=== PATIENT | female | born 1955 | race Caucasian/White ===

== ENCOUNTER 2021-11-29 09:39 | Outpatient (REF) | payer OTHER, MEDICARE, SELFPAY ==
[2021-11-29 11:37] LABS: Hematocrit 38.1 % (37.0-47.0); Hemoglobin 11.8 g/dl (12.0-16.0); Mean Corpuscular Hemoglobin 26.9 pg (27.0-33.0); Mean Corpuscular Volume 86.8 fL (80.0-98.0); Mean Platelet Volume 11.4 fL (9.4-12.3); Platelet Count 158 X10*3/uL (160-400); Red Blood Count 4.39 X10*6/uL (4.20-5.50); White Blood Count 4.7 X10*3/uL (4.8-10.8)
[2021-11-29 11:51] LABS: Estimated Average Glucose 169 mg/dL; Hemoglobin A1c % 7.5 %
[2021-11-29 12:07] LABS: Alanine Aminotransferase 17 U/L (0-31); Albumin Level 4.3 g/dL (3.5-5.0); Alkaline Phosphatase 74 U/L (39-117); Anion Gap 11 (12-20); Aspartate Amino Transferase 17 U/L (5-31); Bilirubin Total 0.2 mg/dL (0.0-1.0); Blood Urea Nitrogen 19 mg/dL (9-16); Calcium 9.3 mg/dL (8.4-10.2); Carbon Dioxide 28 mmol/L (22-29); Chloride 108 mmol/L (96-108); Cholesterol 276 mg/dL; Estimated Glomerular Filt Rate > 60; Glucose Fasting 138 mg/dL (60-99); HDL Cholesterol 37 mg/dL; LDL Cholesterol Calculated 173 mg/dl; Potassium 4.3 mmol/L (3.3-5.1); Sodium 143 mmol/L (135-145); Triglycerides 334 mg/dL
[2021-11-29 12:12] LABS: TSH reflex Free T4 1.32 uIU/mL (0.32-4.0); Vitamin D 25-OH Total 15.2 ng/mL (>30)
== END 2021-11-29 09:40 | disposition home or self-care (01) ==
LOC: HO.HMGCLDS 09:39
PROVIDERS: PCP Internal Medicine; Visit Provider Internal Medicine
DX: E11.9 Type 2 diabetes mellitus without complications (principal); E78.5 Hyperlipidemia, unspecified; E55.9 Vitamin D deficiency, unspecified; I10 Essential (primary) hypertension
CPT/HCPCS: 36415; 80053; 80061; 82306; 83036; 84443; 85027

== ENCOUNTER 2021-12-01 09:59 | Outpatient (REF) | payer OTHER, MEDICARE, SELFPAY ==
[2021-12-01 11:54] LABS: Creatinine Urine 93.19 mg/dL
== END 2021-12-01 10:00 | disposition home or self-care (01) ==
LOC: HO.HMGCLNP 09:59
PROVIDERS: PCP Internal Medicine; Visit Provider Internal Medicine
DX: E11.9 Type 2 diabetes mellitus without complications (principal); E78.5 Hyperlipidemia, unspecified; I10 Essential (primary) hypertension
CPT/HCPCS: 82043

== ENCOUNTER 2022-02-14 10:14 | Outpatient (REF) | payer OTHER, MEDICARE, SELFPAY ==
[2022-02-14 11:32] LABS: Hematocrit 35.1 % (37.0-47.0); Mean Corpuscular HGB Conc 31.3 g/dl (31.0-35.0); Mean Corpuscular Hemoglobin 26.8 pg (27.0-33.0); Mean Corpuscular Volume 85.6 fL (80.0-98.0); Platelet Count 179 X10*3/uL (160-400); Red Cell Distribution Width 14.2 % (11.0-16.0); White Blood Count 4.8 X10*3/uL (4.8-10.8)
[2022-02-14 12:10] LABS: Estimated Average Glucose 171 mg/dL; Hemoglobin A1c % 7.6 %
[2022-02-14 12:15] LABS: Creatinine Urine 65.58 mg/dL; Microalbum/Creatinine Ratio Ur 134.1 ug/mg cr
[2022-02-14 12:21] LABS: Alanine Aminotransferase 17 U/L (0-31); Albumin Level 4.4 g/dL (3.5-5.0); Alkaline Phosphatase 68 U/L (39-117); Anion Gap 15 (12-20); Aspartate Amino Transferase 22 U/L (5-31); Bilirubin Total 0.6 mg/dL (0.0-1.0); Blood Urea Nitrogen 18 mg/dL (9-16); Calcium 9.1 mg/dL (8.4-10.2); Carbon Dioxide 25 mmol/L (22-29); Chloride 105 mmol/L (96-108); Cholesterol 223 mg/dL; Estimated Glomerular Filt Rate > 60; Glucose Fasting 114 mg/dL (60-99); HDL Cholesterol 38 mg/dL; LDL Cholesterol Calculated 132 mg/dl; Potassium 4.5 mmol/L (3.3-5.1); Sodium 140 mmol/L (135-145); Total Protein 7.1 g/dL (6.5-8.0); Triglycerides 268 mg/dL
== END 2022-02-14 10:15 | disposition home or self-care (01) ==
LOC: HO.HMGCLDS 10:14
PROVIDERS: Visit Provider Internal Medicine
DX: E78.5 Hyperlipidemia, unspecified (principal); I10 Essential (primary) hypertension; E11.9 Type 2 diabetes mellitus without complications
CPT/HCPCS: 36415; 80053; 80061; 82043; 83036; 85027

== ENCOUNTER 2022-05-15 09:42 | Outpatient (REF) | payer OTHER, MEDICARE, SELFPAY ==
[2022-05-15 11:42] LABS: Estimated Average Glucose 177 mg/dL; Hemoglobin A1c % 7.8 %
[2022-05-15 11:50] LABS: Alanine Aminotransferase 19 U/L (0-31); Albumin Level 4.5 g/dL (3.5-5.0); Alkaline Phosphatase 74 U/L (39-117); Anion Gap 12 (12-20); Aspartate Amino Transferase 19 U/L (5-31); Bilirubin Total 0.3 mg/dL (0.0-1.0); Blood Urea Nitrogen 19 mg/dL (9-16); Calcium 8.8 mg/dL (8.4-10.2); Carbon Dioxide 28 mmol/L (22-29); Chloride 104 mmol/L (96-108); Cholesterol 251 mg/dL; Estimated Glomerular Filt Rate > 60; Glucose Fasting 132 mg/dL (60-99); HDL Cholesterol 38 mg/dL; Potassium 4.6 mmol/L (3.3-5.1); Sodium 139 mmol/L (135-145); Total Protein 7.1 g/dL (6.5-8.0); Triglycerides 421 mg/dL
== END 2022-05-15 09:43 | disposition home or self-care (01) ==
LOC: HO.HMGCLDS 09:42
PROVIDERS: Visit Provider Internal Medicine
DX: E11.9 Type 2 diabetes mellitus without complications (principal); E78.5 Hyperlipidemia, unspecified; I10 Essential (primary) hypertension
CPT/HCPCS: 36415; 80053; 80061; 83036

== ENCOUNTER 2022-08-31 09:05 | Outpatient (REF) | payer OTHER, MEDICARE, SELFPAY ==
[2022-08-31 11:25] LABS: MANUAL DIFF FLAG NO
[2022-08-31 11:31] LABS: Basophils Percent Auto 0.5 % (0-2); Eosinophils Absolute Auto 0.3 X10*3/uL (0.0-0.4); Eosinophils Percent Auto 4.2 % (0-4); Hematocrit 37.1 % (37.0-47.0); Hemoglobin 11.7 g/dl (12.0-16.0); Imm Gran Abs Auto 0.03 X10*3/uL (0.00-0.03); Imm Gran Pct Auto 0.5 % (0.0-0.4); Lymphocytes Absolute Auto 1.7 X10*3/uL (1.2-4.9); Lymphocytes Percent Auto 29.3 % (20-40); Mean Corpuscular HGB Conc 31.5 g/dl (31.0-35.0); Mean Corpuscular Hemoglobin 26.9 pg (27.0-33.0); Mean Corpuscular Volume 85.3 fL (80.0-98.0); Mean Platelet Volume 10.9 fL (9.4-12.3); Monocytes Absolute Auto 0.3 X10*3/uL (0.1-1.2); Monocytes Percent Auto 5.4 % (2-11); Neutrophils Absolute Auto 3.6 x10*3/uL (2.0-8.3); Neutrophils Percent Auto 60.1 % (45-73); Platelet Count 178 X10*3/uL (160-400); Red Blood Count 4.35 X10*6/uL (4.20-5.50); Red Cell Distribution Width 13.3 % (11.0-16.0); White Blood Count 5.9 X10*3/uL (4.8-10.8)
[2022-08-31 11:47] LABS: Estimated Average Glucose 128 mg/dL; Hemoglobin A1c % 6.1 %
[2022-08-31 11:55] LABS: Alanine Aminotransferase 14 U/L (0-31); Albumin Level 4.5 g/dL (3.5-5.0); Alkaline Phosphatase 64 U/L (39-117); Anion Gap 15 (12-20); Aspartate Amino Transferase 22 U/L (5-31); Bilirubin Total 0.3 mg/dL (0.0-1.0); Blood Urea Nitrogen 15 mg/dL (9-16); Calcium 9.3 mg/dL (8.4-10.2); Carbon Dioxide 28 mmol/L (22-29); Chloride 103 mmol/L (96-108); Cholesterol 161 mg/dL; Estimated Glomerular Filt Rate > 60; Glucose Fasting 94 mg/dL (60-99); HDL Cholesterol 38 mg/dL; LDL Cholesterol Calculated 84 mg/dl; Sodium 142 mmol/L (135-145); Total Protein 6.9 g/dL (6.5-8.0); Triglycerides 198 mg/dL
[2022-08-31 12:40] LABS: Microalbum/Creatinine Ratio Ur 27.3 ug/mg cr
== END 2022-08-31 09:06 | disposition home or self-care (01) ==
LOC: HO.HMGCLDS 09:05
PROVIDERS: PCP Internal Medicine; Visit Provider Internal Medicine
DX: E78.5 Hyperlipidemia, unspecified (principal); I10 Essential (primary) hypertension; E11.9 Type 2 diabetes mellitus without complications
CPT/HCPCS: 36415; 80053; 80061; 82043; 83036; 85025

== ENCOUNTER 2023-01-21 08:29 | Outpatient (REF) | payer OTHER, MEDICARE, SELFPAY ==
[2023-01-21 11:36] LABS: MANUAL DIFF FLAG NO
[2023-01-21 11:42] LABS: Basophils Percent Auto 0.5 % (0-2); Eosinophils Absolute Auto 0.3 X10*3/uL (0.0-0.4); Eosinophils Percent Auto 5.6 % (0-4); Hematocrit 38.7 % (37.0-47.0); Hemoglobin 12.1 g/dl (12.0-16.0); Imm Gran Abs Auto 0.03 X10*3/uL (0.00-0.03); Imm Gran Pct Auto 0.5 % (0.0-0.4); Lymphocytes Absolute Auto 2.2 X10*3/uL (1.2-4.9); Lymphocytes Percent Auto 39.2 % (20-40); Mean Corpuscular HGB Conc 31.3 g/dl (31.0-35.0); Mean Corpuscular Hemoglobin 26.8 pg (27.0-33.0); Mean Corpuscular Volume 85.8 fL (80.0-98.0); Mean Platelet Volume 11.3 fL (9.4-12.3); Monocytes Absolute Auto 0.3 X10*3/uL (0.1-1.2); Monocytes Percent Auto 5.9 % (2-11); Neutrophils Absolute Auto 2.7 x10*3/uL (2.0-8.3); Neutrophils Percent Auto 48.3 % (45-73); Platelet Count 174 X10*3/uL (160-400); Red Blood Count 4.51 X10*6/uL (4.20-5.50); Red Cell Distribution Width 13.7 % (11.0-16.0); White Blood Count 5.6 X10*3/uL (4.8-10.8)
[2023-01-21 12:20] LABS: Estimated Average Glucose 137 mg/dL; Hemoglobin A1C 152.2592 umol/L; Hemoglobin A1c % 6.4 %
[2023-01-21 12:39] LABS: Alanine Aminotransferase 17 U/L (0-31); Albumin Level 4.2 g/dL (3.5-5.0); Alkaline Phosphatase 62 U/L (39-117); Anion Gap 16 (12-20); Aspartate Amino Transferase 23 U/L (5-31); Bilirubin Total 0.3 mg/dL (0.0-1.0); Blood Urea Nitrogen 19 mg/dL (9-16); Calcium 8.8 mg/dL (8.4-10.2); Carbon Dioxide 26 mmol/L (22-29); Chloride 104 mmol/L (96-108); Cholesterol 152 mg/dL; Creatinine Urine 114.11 mg/dL; Estimated Glomerular Filt Rate > 60; Glucose Fasting 106 mg/dL (60-99); HDL Cholesterol 39 mg/dL; LDL Cholesterol Calculated 77 mg/dl; Microalbum/Creatinine Ratio Ur 28.9 ug/mg cr; Potassium 4.1 mmol/L (3.3-5.1); Sodium 142 mmol/L (135-145); Total Protein 6.5 g/dL (6.5-8.0); Triglycerides 181 mg/dL
== END 2023-01-21 08:30 | disposition home or self-care (01) ==
LOC: HO.HMGCLDS 08:29
PROVIDERS: PCP Internal Medicine; Visit Provider Internal Medicine
DX: E11.9 Type 2 diabetes mellitus without complications (principal); E78.5 Hyperlipidemia, unspecified; I10 Essential (primary) hypertension
CPT/HCPCS: 36415; 80053; 80061; 82043; 83036; 85025

== ENCOUNTER 2023-05-31 08:33 | Outpatient (REF) | payer OTHER, MEDICARE, SELFPAY ==
[2023-05-31 11:38] LABS: Estimated Average Glucose 128 mg/dL; Hemoglobin A1c % 6.1 %
[2023-05-31 12:05] LABS: Alanine Aminotransferase 19 U/L (0-31); Albumin Level 4.5 g/dL (3.5-5.0); Alkaline Phosphatase 63 U/L (39-117); Anion Gap 21 (12-20); Aspartate Amino Transferase 19 U/L (5-31); Bilirubin Total 0.3 mg/dL (0.0-1.0); Blood Urea Nitrogen 21 mg/dL (9-16); Calcium 9.5 mg/dL (8.4-10.2); Carbon Dioxide 19 mmol/L (22-29); Chloride 104 mmol/L (96-108); Cholesterol 155 mg/dL; Estimated Glomerular Filt Rate > 60; Glucose Fasting 158 mg/dL (60-99); HDL Cholesterol 36 mg/dL; LDL Cholesterol Calculated 71 mg/dl; Potassium 4.6 mmol/L (3.3-5.1); Sodium 139 mmol/L (135-145); Total Protein 7.2 g/dL (6.5-8.0); Triglycerides 241 mg/dL
[2023-05-31 12:28] LABS: Creatinine Urine 103.05 mg/dL; Microalbum/Creatinine Ratio Ur 18.4 ug/mg cr
== END 2023-05-31 08:34 | disposition home or self-care (01) ==
LOC: HO.HMGCLDS 08:33
PROVIDERS: PCP Internal Medicine; Visit Provider Internal Medicine
DX: E11.9 Type 2 diabetes mellitus without complications (principal); I10 Essential (primary) hypertension; E78.5 Hyperlipidemia, unspecified
CPT/HCPCS: 36415; 80053; 80061; 82043; 83036

== ENCOUNTER 2023-06-03 13:54 | Outpatient (AMB) | payer OTHER, MEDICARE, SELFPAY ==
--- NOTE | 2023-06-03 14:25 | MHC.PC.OV ---
Vital Signs 06/03/23 14:26 Height 5 ft Weight 138 lb BMI 26.9 BP 128/50 L Blood Pressure Location Lt brachial Position Sitting Pulse 89 Pulse Source Pulse Oximeter Pulse Oximetry (%) 96 Oxygen Delivery Method Room Air Intake Visit Reasons: Followup Allergies Sulfa (Sulfonamide Antibiotics) [SULFA (SULFONAMIDE ANTIBIOTICS)] Allergy (Unknown, Verified 06/03/23 14:25) HIVES pravastatin Adverse Reaction (Intermediate, Verified 06/03/23 14:25) Diarrhea Medication List - Last Reconciled 06/03/23 by Radha Nair MD amlodipine 5 mg PO DAILY BD Ultra-Fine Natalie Pen Needle (pen needle, diabetic) 1 ea miscellaneous DAILY NS blood sugar diagnostic ([employer] Ultra Test strips) 1 QD cetirizine (Zyrtec) 10 mg PO DAILY PRN dapagliflozin propanediol (Farxiga) 5 mg PO DAILY dapagliflozin propanediol (Farxiga) 10 mg PO DAILY dulaglutide (Trulicity) 1.5 mg (0.5 mL) subcut QWEEK insulin glargine (Lantus Solostar U-100 Insulin) 32 units (0.32 mL) subcut DAILY losartan 100 mg PO DAILY metformin ER 1,000 mg (2 x 500 mg) PO BID omeprazole 20 mg PO DAILY rosuvastatin (Crestor) 10 mg PO DAILY sertraline 150 mg (1.5 x 100 mg) PO DAILY Tobacco use date assessed: 06/03/23 Fall risk assessment: No Falls in past year Last assessed Fall Risk: 06/03/23 Dental Screening Dental Screen Date: 06/03/23 Did you have a dental visit in the last 12 months?: Yes Did you have a dental problem in the last 6 months where you did not have access to dental care?: No Was dental information given to patient?: No HPI Followup HPI Details Pt presents for f/u DM 2, HTN, hyperlipid, stable on meds. PFSH Medical History Anxiety Colonoscopy refused DM type 2 (diabetes mellitus, type 2) HTN (hypertension) Hyperlipidemia Mammogram declined Normal breast exam Vitamin D deficiency Surgical History History of back surgery Hx of colonoscopy Family History Father Substance use disorder Mother Hypertension Diabetes COPD (chronic obstructive pulmonary disease) Social History Housing: House Patient Tobacco Use Status: Never used Tobacco e-Cigarette/Vaping Use: Never Used Current occupational status: retired Cognitive needs: No Hearing needs: No Vision needs: Yes Questionnaire Thrive Questionnaire Date Thrive assessed: 02/14/22 AUDIT C Alcohol Use Questionnaire (AUDIT-C) 1. How often do you have a drink containing alcohol?: Never 3. How often do you have six or more drinks on one occasion?: Never Total Score: 0 Score Reviewed/Action Taken: Yes JO-7 AMB Questionnaire JO-7 Date JO - 7 assessed: 02/14/22 Source: Developed by Drs. Praneeth Modi, Shi Gongora, Jose Miguel Giles and colleagues, with an educational rafiq from [employer]. Review of Systems Const All systems reviewed & are unremarkable except as noted in HPI and below Reports no additional complaints Eyes Reports no additional complaints ENT Reports no additional complaints Card Reports no additional complaints Resp Reports no additional complaints GI Reports no additional complaints Reports no additional complaints Physical exam (Primary Care) Vital Signs: Last Vital Signs Pulse 89 06/03/23 14:26 BP 128/50 L 06/03/23 14:26 Pulse Ox 96 06/03/23 14:26 Oxygen Delivery Method Room Air 06/03/23 14:26 BMI result Body Mass Index 26.9 Tobacco/Smoking Status: Tobacco use Status Tobacco use date assessed 06/03/23 06/03/23 14:26 Patient Tobacco Use Status Never used Tobacco 06/03/23 14:26 e-Cigarette/Vaping Use Never Used 06/03/23 14:26 Thrive Assessment: Date of Thrive Assessment Date Thrive assessed 02/14/22 06/03/23 14:26 HENMT Head: Yes normal to inspection Eyes General: appearance normal, both eyes and all related structures Resp Effort & Inspection: normal respiratory effort Auscultation: clear to auscultation bilaterally Cardio Rhythm: regular rhythm Heart sounds: S1 normal heart sound present and S2 normal heart sound present GI Inspection: Yes normal to inspection Palpation (GI): Soft to palpation Percussion: Yes normal to percussion Assessment and Plan Assessment & Plan (1) DM type 2 (diabetes mellitus, type 2): Code(s): E11.9 - Type 2 diabetes mellitus without complications Plan: A1C is 6.1, ADA , increase exercise discussed. Increase Farxiga to 10 mg and decrease Insulin to 16 u, cont Trulicity and Metformin. f/u in 3 month with labs (2) HTN (hypertension): Code(s): I10 - Essential (primary) hypertension Plan: cont Losartan and Amlodipine (3) Hyperlipidemia: Comment: Intolerant to pravastatin and simvastatin Code(s): E78.5 - Hyperlipidemia, unspecified Plan: cont Crestor Orders: Orders Hemoglobin A1c 3 Months E11.9 - Type 2 diabetes mellitus without complications, E78.5 - Hyperlipidemia, unspecified, I10 - Essential (primary) hypertension Comprehensive [place]. Panel Fast 3 Months E11.9 - Type 2 diabetes mellitus without complications, E78.5 - Hyperlipidemia, unspecified, I10 - Essential (primary) hypertension Lipid Panel 3 Months E11.9 - Type 2 diabetes mellitus without complications, E78.5 - Hyperlipidemia, unspecified, I10 - Essential (primary) hypertension Medications: New dapagliflozin propanediol (Farxiga) 10 mg PO DAILY 90 tabs 3RF Coding Level of Care Code Est Pt Level 4 (75712) Diagnoses DM type 2 (diabetes mellitus, type 2) E11.9 HTN (hypertension) I10 Hyperlipidemia E78.5
[2023-06-03 14:26] VITALS: BP 128/50; PULSE 89; O2SAT 96; BMI 26.9
== END 2023-06-03 14:43 | disposition home or self-care (01) ==
PROVIDERS: PCP Internal Medicine; Visit Provider Internal Medicine
DX: E11.9 Type 2 diabetes mellitus without complications (principal); I10 Essential (primary) hypertension; E78.5 Hyperlipidemia, unspecified
CPT/HCPCS: 99214

== ENCOUNTER 2023-10-18 08:06 | Outpatient (REF) | payer OTHER, MEDICARE, SELFPAY ==
[2023-10-18 11:38] LABS: Estimated Average Glucose 146 mg/dL; Hemoglobin A1C 150.3605 umol/L; Hemoglobin A1c % 6.7 % (<6.0)
[2023-10-18 11:50] LABS: Alanine Aminotransferase 17 U/L (0-31); Albumin Level 4.3 g/dL (3.5-5.0); Alkaline Phosphatase 63 U/L (39-117); Anion Gap 15 (12-20); Aspartate Amino Transferase 23 U/L (5-31); Bilirubin Total 0.3 mg/dL (0.0-1.0); Blood Urea Nitrogen 17 mg/dL (9-16); Calcium 9.3 mg/dL (8.4-10.2); Carbon Dioxide 26 mmol/L (22-29); Chloride 106 mmol/L (96-108); Cholesterol 130 mg/dL (<200); Estimated Glomerular Filt Rate > 60; Glucose Fasting 114 mg/dL (60-99); HDL Cholesterol 38 mg/dL (>40); LDL Cholesterol Calculated 63 mg/dL (<100); Potassium 4.2 mmol/L (3.3-5.1); Sodium 143 mmol/L (135-145); Total Protein 6.9 g/dL (6.5-8.0); Triglycerides 149 mg/dL (<150)
== END 2023-10-18 08:07 | disposition home or self-care (01) ==
LOC: HO.HMGCLDS 08:06
PROVIDERS: PCP Internal Medicine; Visit Provider Internal Medicine
DX: E11.9 Type 2 diabetes mellitus without complications (principal); I10 Essential (primary) hypertension; E78.5 Hyperlipidemia, unspecified
CPT/HCPCS: 36415; 80053; 80061; 83036

== ENCOUNTER 2023-10-23 10:44 | Outpatient (AMB) | payer OTHER, MEDICARE, SELFPAY ==
[2023-10-23 11:29] VITALS: BP 126/64; PULSE 79; O2SAT 97; BMI 26.2
--- NOTE | 2023-10-23 11:29 | MHC.PC.OV ---
Vital Signs 10/23/23 11:29 Height 5 ft Weight 134 lb BMI 26.2 BP 126/64 Blood Pressure Location Lt brachial Position Sitting Pulse 79 Pulse Source Pulse Oximeter Pulse Oximetry (%) 97 Oxygen Delivery Method Room Air Intake Visit Reasons: Follow Up 3 Month Intake Note: Pt is here today for 3 months follow up visit. Allergies Sulfa (Sulfonamide Antibiotics) [SULFA (SULFONAMIDE ANTIBIOTICS)] Allergy (Unknown, Verified 10/23/23 11:31) HIVES pravastatin Adverse Reaction (Intermediate, Verified 10/23/23 11:31) Diarrhea Medication List - Last Reconciled 10/23/23 by Radha Nair MD amlodipine 5 mg PO DAILY BD Ultra-Fine Natalie Pen Needle (pen needle, diabetic) 1 ea miscellaneous DAILY NS blood sugar diagnostic ([employer] Ultra Test strips) 1 QD cetirizine (Zyrtec) 10 mg PO DAILY PRN dapagliflozin propanediol (Farxiga) 5 mg PO DAILY dapagliflozin propanediol (Farxiga) 10 mg PO DAILY dulaglutide (Trulicity) 1.5 mg (0.5 mL) subcut QWEEK insulin glargine (Lantus Solostar U-100 Insulin) 32 units (0.32 mL) subcut DAILY losartan 100 mg PO DAILY metformin ER 1,000 mg (2 x 500 mg) PO BID omeprazole 20 mg PO DAILY rosuvastatin (Crestor) 10 mg PO DAILY sertraline 150 mg (1.5 x 100 mg) PO DAILY Tobacco use date assessed: 10/23/23 HPI Follow Up 3 Month HPI Details PATIENT PRESENTS FOR THE FOLLOW-UP ON HYPERTENSION HYPERLIPIDEMIA TYPE 2 DIABETES. Patient reports fasting blood glucose in the mornings up to 130. She had a tooth infection and has been under lot of stress. Patient complains of chronic right knee pain getting worse when walking longer distance. Patient is to get cortisone injection by [facility]. [facility] Medical History Anxiety Colonoscopy refused DM type 2 (diabetes mellitus, type 2) HTN (hypertension) Hyperlipidemia Mammogram declined Normal breast exam Vitamin D deficiency Surgical History History of back surgery Hx of colonoscopy Family History Father Substance use disorder Mother Hypertension Diabetes COPD (chronic obstructive pulmonary disease) Social History Housing: House Patient Tobacco Use Status: Never used Tobacco e-Cigarette/Vaping Use: Never Used Current occupational status: retired Cognitive needs: No Hearing needs: No Vision needs: Yes Questionnaire Thrive Questionnaire Date Thrive assessed: 02/14/22 JO-7 AMB Questionnaire JO-7 Date JO - 7 assessed: 02/14/22 Source: Developed by Drs. Praneeth Modi, Shi Gongora, Jose Miguel Giles and colleagues, with an educational rafiq from [employer]. Review of Systems Const All systems reviewed & are unremarkable except as noted in HPI and below Reports no additional complaints Eyes Reports no additional complaints ENT Reports no additional complaints Card Reports no additional complaints Resp Reports no additional complaints GI Reports no additional complaints Reports no additional complaints Physical exam (Primary Care) Vital Signs: Last Vital Signs Pulse 79 10/23/23 11:29 BP 126/64 10/23/23 11:29 Pulse Ox 97 10/23/23 11:29 Oxygen Delivery Method Room Air 10/23/23 11:29 BMI result Body Mass Index 26.2 Tobacco/Smoking Status: Tobacco use Status Tobacco use date assessed 10/23/23 10/23/23 11:45 Patient Tobacco Use Status Never used Tobacco 10/23/23 11:45 e-Cigarette/Vaping Use Never Used 10/23/23 11:31 Thrive Assessment: Date of Thrive Assessment Date Thrive assessed 02/14/22 10/23/23 11:31 Const General: no acute distress HENMT Head: Yes normal to inspection Ears: hearing grossly normal bilaterally Eyes General: appearance normal, both eyes and all related structures Resp Effort & Inspection: normal respiratory effort Auscultation: clear to auscultation bilaterally Cardio Rhythm: regular rhythm Heart sounds: S1 normal heart sound present and S2 normal heart sound present GI Inspection: Yes normal to inspection Palpation (GI): Soft to palpation Percussion: Yes normal to percussion Auscultation: normal bowel sounds Extrem Other: Right knee with crepitus and decreased range of motion, no joint swelling erythema Assessment and Plan Assessment & Plan (1) Knee pain, right: Code(s): M25.561 - Pain in right knee Plan: Check x-ray and patient was advised to start exercising regularly on stationary bike (2) Hyperlipidemia: Comment: Intolerant to pravastatin and simvastatin Code(s): E78.5 - Hyperlipidemia, unspecified Plan: Continue crestor (3) HTN (hypertension): Code(s): I10 - Essential (primary) hypertension Plan: Continue current medications (4) DM type 2 (diabetes mellitus, type 2): Code(s): E11.9 - Type 2 diabetes mellitus without complications Plan: A1c is up to 6.7, patient reports feeling more hungry in the mid week and thinks Trulicity is less affective. Increase Trulicity will be increased to 3 mg and patient will continue Farxiga metformin and cutting down on Lantus. Return in 3 months with a fasting labs before (5) Anxiety: Code(s): F41.9 - Anxiety disorder, unspecified Plan: Continue sertraline Orders: Orders Lipid Panel 3 Months E11.9 - Type 2 diabetes mellitus without complications, E78.5 - Hyperlipidemia, unspecified, F41.9 - Anxiety disorder, unspecified, I10 - Essential (primary) hypertension Microalbumin, Random (w Creat) 3 Months E11.9 - Type 2 diabetes mellitus without complications, E78.5 - Hyperlipidemia, unspecified, F41.9 - Anxiety disorder, unspecified, I10 - Essential (primary) hypertension XR knee RT 2V Today M25.561 - Pain in right knee Comprehensive [place]. Panel Fast 3 Months E11.9 - Type 2 diabetes mellitus without complications, E78.5 - Hyperlipidemia, unspecified, F41.9 - Anxiety disorder, unspecified, I10 - Essential (primary) hypertension Hemoglobin A1c 3 Months E11.9 - Type 2 diabetes mellitus without complications, E78.5 - Hyperlipidemia, unspecified, F41.9 - Anxiety disorder, unspecified, I10 - Essential (primary) hypertension Complete Blood Count Auto Diff 3 Months E11.9 - Type 2 diabetes mellitus without complications, E78.5 - Hyperlipidemia, unspecified, F41.9 - Anxiety disorder, unspecified, I10 - Essential (primary) hypertension Medications: New blood-glucose sensor ([employer] 3 Sensor device) As directed 1 ea 5RF dulaglutide (Trulicity) 3 mg (0.5 mL) subcut QWEEK 6 mL 2RF Discontinued dulaglutide (Trulicity) Discontinued Reason: Doctor's Order 1.5 mg (0.5 mL) subcut QWEEK 6 mL 1RF dapagliflozin propanediol (Farxiga) Discontinued Reason: Doctor's Order 5 mg PO DAILY 90 tabs 3RF Coding Level of Care Code Est Pt Level 4 (89306) Diagnoses Knee pain, right M25.561 Hyperlipidemia E78.5 HTN (hypertension) I10 DM type 2 (diabetes mellitus, type 2) E11.9 Anxiety F41.9
== END 2023-10-23 12:29 | disposition home or self-care (01) ==
PROVIDERS: PCP Internal Medicine; Visit Provider Internal Medicine
DX: M25.561 Pain in right knee (principal); E78.5 Hyperlipidemia, unspecified; I10 Essential (primary) hypertension; E11.9 Type 2 diabetes mellitus without complications; F41.9 Anxiety disorder, unspecified
CPT/HCPCS: 99214

== ENCOUNTER 2024-05-11 12:01 | Outpatient (AMB) | payer OTHER, MEDICARE, SELFPAY ==
--- NOTE | 2024-05-11 12:29 | A.OFFPC_ITS ---
Vital Signs 05/11/24 12:34 Height 5 ft Weight 135 lb BMI 26.4 BP 120/60 Blood Pressure Location Lt brachial Position Sitting Pulse 82 Pulse Source Pulse Oximeter Pulse Oximetry (%) 96 Oxygen Delivery Method Room Air Intake Visit Reasons: Annual Intake Note: pt is here for her annual PE. Mammogram and colonoscopy declined Allergies Sulfa (Sulfonamide Antibiotics) [SULFA (SULFONAMIDE ANTIBIOTICS)] Allergy (Unknown, Verified 05/11/24 12:31) HIVES pravastatin Adverse Reaction (Intermediate, Verified 05/11/24 12:31) Diarrhea Medication List - Last Reconciled 05/11/24 by Radha Nair MD amlodipine 5 mg PO DAILY BD Ultra-Fine Natalie Pen Needle (pen needle, diabetic) 1 ea miscellaneous DAILY NS blood sugar diagnostic ([employer] Ultra Test strips) 1 QD cetirizine (Zyrtec) 10 mg PO DAILY PRN dapagliflozin propanediol (Farxiga) 10 mg PO DAILY Dexcom G7 Sensor (blood-glucose sensor) As directed NS dulaglutide (Trulicity) 3 mg (0.5 mL) subcut QWEEK Lantus Solostar U-100 Insulin (insulin glargine) 20 units (0.2 mL) subcut DAILY NS losartan 100 mg PO DAILY metformin ER 1,000 mg (2 x 500 mg) PO BID omeprazole 20 mg PO DAILY rosuvastatin (Crestor) 10 mg PO DAILY sertraline 150 mg (1.5 x 100 mg) PO DAILY Tobacco use date assessed: 05/11/24 Fall risk assessment: No Falls in past year Dental Screening Dental Screen Date: 05/11/24 Did you have a dental visit in the last 12 months?: Yes Did you have a dental problem in the last 6 months where you did not have access to dental care?: No Was dental information given to patient?: Patient has dentist HPI Annual HPI Details Patient presents for a physical. She complains of having low energy feeling tired starting the middle of the day. Patient denies PND orthopnea chest pain shortness of breath with exertion. 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 [facility] Medical History Mammogram declined Vitamin D deficiency Anxiety Colonoscopy refused Normal breast exam Hyperlipidemia HTN (hypertension) DM type 2 (diabetes mellitus, type 2) Surgical History Hx of colonoscopy History of back surgery Family History Father Substance use disorder Mother Hypertension Diabetes COPD (chronic obstructive pulmonary disease) Social History Housing: House Patient Tobacco Use Status: Never used Tobacco e-Cigarette/Vaping Use: Never Used service: No Current occupational status: retired Cognitive needs: No Hearing needs: No Vision needs: Yes Questionnaire PHQ-9 Over the last 2 weeks, how often have you been bothered by any of the following problems? 1. Little interest or pleasure in doing things: not at all 2. Feeling down, depressed, or hopeless: not at all 3. Trouble falling or staying asleep, or sleeping too much: not at all 4. Feeling tired or having little energy: not at all 5. Poor appetite or overeating: not at all 6. Feeling bad about yourself - or that you are a failure or have let yourself or your family down: not at all 7. Trouble concentrating on things, such as reading the newspaper or watching television: not at all 8. Moving or speaking so slowly that other people could have noticed. Or the opposite - being so fidgety or restless that you have been moving around a lot more than usual: not at all 9. Thoughts that you would be better off or of hurting yourself in some way: not at all Total score: 0 Depression Screening Interpretation: Negative Depression Screening Done: Yes 05206 - PHQ-9 Billing: Yes Source: Developed by Drs. Praneeth Modi, Shi Gongora, Jose Miguel Giles and colleagues, with an educational rafiq from [employer]. Thrive Questionnaire Date Thrive assessed: 05/11/24 What is your living situation today?: I have a steady place to live Within the past 12 months, did the food you bought not last and you didn't have the money to get more?: Never true Within the past 12 months, did you worry whether your food would run out before you got money to buy more?: Never true Do you have trouble paying for medicines?: No Do you have trouble getting transportation to medical appointments?: No Do you have trouble paying your heating and electricity bill?: No Do you have trouble taking care of your child, family member or friend?: No Do you have trouble with day-to-day activities such as bathing, preparing meals, shopping, managing finances, etc.?: No Are you currently unemployed and looking for a job?: No Are you interested in more education?: No Please select the resources that you would like help with: None Currently or been in a relationship where the following occur: No concerns reported THRIVE Score: 0 AUDIT C Alcohol Use Questionnaire (AUDIT-C) 1. How often do you have a drink containing alcohol?: Never 3. How often do you have six or more drinks on one occasion?: Never Total Score: 0 JO-7 AMB Questionnaire JO-7 Date JO - 7 assessed: 05/11/24 Feeling nervous, anxious, or on edge: 0 = Not at all Not being able to stop or control worryin = Not at all Worrying too much about different things: 0 = Not at all Trouble relaxin = Not at all Being so restless that it is hard to sit still: 0 = Not at all Becoming easily annoyed or irritable: 0 = Not at all Feeling afraid as if something awful might happen: 0 = Not at all Total JO-7 score (0-4 normal; 5-9 mild; 10-14 moderate; 15-21 severe): 0 Source: Developed by Drs. Praneeth Modi, Shi Gongora, Jose Miguel Giles and colleagues, with an educational rafiq from [employer]. JO-7 Assessment Billing JO-7 Assessment Tool: JO-7 Assessment 50574 Review of Systems Const All systems reviewed & are unremarkable except as noted in HPI and below Eyes Reports no additional complaints ENT Reports no additional complaints Card Reports no additional complaints GI Reports no additional complaints Reports no additional complaints Physical exam (Primary Care) Vital Signs: Last Vital Signs Pulse 82 05/11/24 12:34 BP 144/60 H 05/11/24 12:34 Pulse Ox 96 05/11/24 12:34 Oxygen Delivery Method Room Air 05/11/24 12:34 BMI result Body Mass Index 26.4 Tobacco/Smoking Status: Tobacco use Status Tobacco use date assessed 05/11/24 05/11/24 12:33 Patient Tobacco Use Status Never used Tobacco 05/11/24 12:29 e-Cigarette/Vaping Use Never Used 05/11/24 12:29 PHQ-9: PHQ-9 Score PHQ-9: Total score 0 05/11/24 12:40 Depression Screening Interpretation: Negative Thrive Assessment: Date of Thrive Assessment Date Thrive assessed 05/11/24 05/11/24 12:40 Currently or been in a relationship where the following occur: No concerns reported Const General: no acute distress HENMT Head: Yes normal to inspection Throat: Yes posterior oropharynx normal Eyes General: appearance normal, both eyes and all related structures Neck Neck: Yes no lymphadenopathy and Yes supple Resp Effort & Inspection: normal respiratory effort Auscultation: clear to auscultation bilaterally Cardio Rhythm: regular rhythm Heart sounds: S1 normal heart sound present and S2 normal heart sound present GI Inspection: Yes normal to inspection Palpation (GI): Soft to palpation Percussion: Yes normal to percussion Auscultation: normal bowel sounds Results AMB Hemoglobin A1c AMB Hemoglobin A1c 6.4 % Last Edit by Brenden Burnett CMA on 05/11/24 12:52 Results Reviewed Results Reviewed: Laboratory Last Values Hgb A1c (Clinic) 6.4 % (4.0-6.0) H 05/11/24 12:46 Assessment and Plan Assessment & Plan (1) Vitamin D deficiency: Code(s): E55.9 - Vitamin D deficiency, unspecified Plan: Check vitamin-D level (2) HTN (hypertension): Code(s): I10 - Essential (primary) hypertension Plan: Continue current medications (3) DM type 2 (diabetes mellitus, type 2): Code(s): E11.9 - Type 2 diabetes mellitus without complications Plan: A1c is 6.4, ADA diet regular exercise discussed with the patient. Patient has difficulty getting Trulicity because of the shortage. Mounjaro 10 mg weekly will be started instead. She will follow-up in 3 months (4) Hyperlipidemia: Comment: Intolerant to pravastatin and simvastatin Code(s): E78.5 - Hyperlipidemia, unspecified Plan: Continue crestor (5) Fatigue: Code(s): R53.83 - Other fatigue Plan: Check basic blood work and iron studies, vitamin B12 and D level and sed rate. Obtain echocardiogram Orders: Orders Complete Blood Count Auto Diff Today E11.9 - Type 2 diabetes mellitus without complications, E55.9 - Vitamin D deficiency, unspecified, E78.5 - Hyperlipidemia, unspecified, I10 - Essential (primary) hypertension Lipid Panel Today E11.9 - Type 2 diabetes mellitus without complications, E55.9 - Vitamin D deficiency, unspecified, E78.5 - Hyperlipidemia, unspecified, I10 - Essential (primary) hypertension Microalbumin, Random (w Creat) Today E11.9 - Type 2 diabetes mellitus without complications, E55.9 - Vitamin D deficiency, unspecified, E78.5 - Hyperlipidemia, unspecified, I10 - Essential (primary) hypertension Vitamin B12 and Folate Today E11.9 - Type 2 diabetes mellitus without complications, E55.9 - Vitamin D deficiency, unspecified, E78.5 - Hyperlipidemia, unspecified, I10 - Essential (primary) hypertension Vitamin D 25-OH Total Today E11.9 - Type 2 diabetes mellitus without complications, E55.9 - Vitamin D deficiency, unspecified, E78.5 - Hyperlipidemia, unspecified, I10 - Essential (primary) hypertension IRON PROFILE Today R53.83 - Other fatigue Erythrocyte Sedimentation Rate Today R53.83 - Other fatigue Comprehensive [place]. Panel Fast 3 Months E11.9 - Type 2 diabetes mellitus without complications, I10 - Essential (primary) hypertension Microalbumin, Random (w Creat) 3 Months E11.9 - Type 2 diabetes mellitus without complications, I10 - Essential (primary) hypertension TSH reflex Free T4 Today R53.83 - Other fatigue Hemoglobin A1c 3 Months E11.9 - Type 2 diabetes mellitus without complications AMB Hemoglobin A1c Today E11.9 - Type 2 diabetes mellitus without complications Comprehensive [place]. Panel Fast Today E11.9 - Type 2 diabetes mellitus without complications, E55.9 - Vitamin D deficiency, unspecified, E78.5 - Hyperlipidemia, unspecified, I10 - Essential (primary) hypertension CA echo transthorac w con Today E11.9 - Type 2 diabetes mellitus without complications, I20.89 - Other forms of angina pectoris, R53.83 - Other fatigue Complete Blood Count Auto Diff 3 Months E11.9 - Type 2 diabetes mellitus without complications, I10 - Essential (primary) hypertension Lipid Panel 3 Months E11.9 - Type 2 diabetes mellitus without complications, I 10 - Essential (primary) hypertension Medications: New Mounjaro (tirzepatide) 10 mg (0.5 mL) subcut QWEEK 6 mL 3RF NS Changed From Lantus Solostar U-100 Insulin (insulin glargine) 20 units (0.2 mL) subcut DAILY 15 mL 3RF NS To Lantus Solostar U-100 Insulin (insulin glargine) 24 units (0.24 mL) subcut DAILY 15 mL 3RF NS Coding Level of Care Code Est Pt Prev Care >65y(75444) Diagnoses Vitamin D deficiency E55.9 HTN (hypertension) I10 DM type 2 (diabetes mellitus, type 2) E11.9 Hyperlipidemia E78.5 Fatigue R53.83 Additional Codes JO-7 Assessment Billing - JO-7 Assessment Tool: JO-7 Assessment [id number] ([id number])
[2024-05-11 12:34] VITALS: BP 120/60; PULSE 82; O2SAT 96; BMI 26.4
== END 2024-05-11 13:11 | disposition home or self-care (01) ==
PROVIDERS: PCP Internal Medicine; Visit Provider Internal Medicine
DX: Z00.00 Encounter for general adult medical examination without abnormal findings (principal); E11.69 Type 2 diabetes mellitus with other specified complication; E55.9 Vitamin D deficiency, unspecified; I10 Essential (primary) hypertension; E78.5 Hyperlipidemia, unspecified; R53.83 Other fatigue
CPT/HCPCS: 83036; 99397

== ENCOUNTER 2024-05-25 06:37 | Outpatient (REF) | payer OTHER, MEDICARE, SELFPAY ==
[2024-05-25 10:14] LABS: MANUAL DIFF FLAG NO
[2024-05-25 10:22] LABS: Basophils Percent Auto 0.6 % (0-2); Eosinophils Absolute Auto 0.3 X10*3/uL (0.0-0.4); Eosinophils Percent Auto 5.9 % (0-4); Hematocrit 35.9 % (37.0-47.0); Hemoglobin 11.5 g/dl (12.0-16.0); Imm Gran Abs Auto 0.01 X10*3/uL (0.00-0.03); Imm Gran Pct Auto 0.2 % (0.0-0.4); Lymphocytes Absolute Auto 1.8 X10*3/uL (1.2-4.9); Lymphocytes Percent Auto 37.5 % (20-40); Mean Corpuscular Hemoglobin 27.8 pg (27.0-33.0); Mean Corpuscular Volume 86.9 fL (80.0-98.0); Mean Platelet Volume 11.1 fL (9.4-12.3); Monocytes Absolute Auto 0.3 X10*3/uL (0.1-1.2); Monocytes Percent Auto 6.1 % (2-11); Neutrophils Absolute Auto 2.3 x10*3/uL (2.0-8.3); Neutrophils Percent Auto 49.7 % (45-73); Platelet Count 162 X10*3/uL (160-400); Red Blood Count 4.13 X10*6/uL (4.20-5.50); Red Cell Distribution Width 14.1 % (11.0-16.0); White Blood Count 4.7 X10*3/uL (4.8-10.8)
[2024-05-25 10:46] LABS: Creatinine Urine 149.38 mg/dL; Microalbum/Creatinine Ratio Ur 10.7 ug/mg cr (<30)
[2024-05-25 10:51] LABS: Alanine Aminotransferase 18 U/L (0-31); Albumin Level 4.4 g/dL (3.5-5.0); Alkaline Phosphatase 53 U/L (39-117); Anion Gap 13 (12-20); Aspartate Amino Transferase 23 U/L (5-31); Bilirubin Total 0.2 mg/dL (0.0-1.0); Blood Urea Nitrogen 21 mg/dL (9-16); Calcium 9.7 mg/dL (8.4-10.2); Carbon Dioxide 28 mmol/L (22-29); Chloride 106 mmol/L (96-108); Cholesterol 138 mg/dL (<200); Estimated Glomerular Filt Rate > 60; Glucose Fasting 89 mg/dL (60-99); HDL Cholesterol 43 mg/dL (>40); Iron 45 mcg/dL (30-160); LDL Cholesterol Calculated 72 mg/dL (<100); Percent Iron Saturation 15 % (15-50); Potassium 4.4 mmol/L (3.3-5.1); Sodium 143 mmol/L (135-145); TSH reflex Free T4 2.27 uIU/mL (0.32-4.0); Total Iron Binding Capacity 298 mcg/dL (228-428); Total Protein 6.8 g/dL (6.5-8.0); Triglycerides 115 mg/dL (<150); Unsaturated Iron Binding 253 ug/dL; Vitamin D 25-OH Total 31.7 ng/mL (>30)
[2024-05-25 11:13] LABS: Erythrocyte Sedimentation Rate 6 MM/HR (0-20)
[2024-05-25 13:16] LABS: Folate 13.3 ng/mL (> or = 4.0); Vitamin B12 319 pg/mL (200-900)
== END 2024-05-25 06:38 | disposition home or self-care (01) ==
LOC: HO.HMGCLDS 06:37
PROVIDERS: PCP Internal Medicine; Visit Provider Internal Medicine
DX: E55.9 Vitamin D deficiency, unspecified (principal); I10 Essential (primary) hypertension; E11.9 Type 2 diabetes mellitus without complications; E78.5 Hyperlipidemia, unspecified; R53.83 Other fatigue
CPT/HCPCS: 36415; 80053; 80061; 82043; 82306; 82570; 82607; 82746; 83540; 84443; 85025; 85652

== ENCOUNTER 2024-09-18 10:32 | Outpatient (AMB) | payer OTHER, MEDICARE, SELFPAY ==
[2024-09-18 10:33] VITALS: BP 128/62; PULSE 72; O2SAT 98; BMI 26.4
--- NOTE | 2024-09-18 10:33 | MHC.PC.OV ---
Vital Signs 09/18/24 10:33 Height 5 ft Weight 135 lb BMI 26.4 BP 128/62 Blood Pressure Location Lt brachial Position Sitting Pulse 72 Pulse Source Pulse Oximeter Pulse Oximetry (%) 98 Oxygen Delivery Method Room Air Intake Visit Reasons: Follow up Intake Note: Pt is here today for a follow up visit. Allergies Sulfa (Sulfonamide Antibiotics) [SULFA (SULFONAMIDE ANTIBIOTICS)] Allergy (Unknown, Verified 09/18/24 10:34) HIVES pravastatin Adverse Reaction (Intermediate, Verified 09/18/24 10:34) Diarrhea Medication List - Last Reconciled 09/18/24 by Radha Nair MD amlodipine 5 mg PO DAILY BD Ultra-Fine Natalie Pen Needle (pen needle, diabetic) 1 ea miscellaneous DAILY NS blood sugar diagnostic ([employer] Ultra Test strips) 1 QD cetirizine (Zyrtec) 10 mg PO DAILY PRN dapagliflozin propanediol (Farxiga) 10 mg PO DAILY Dexcom G7 Sensor (blood-glucose sensor) As directed NS dulaglutide (Trulicity) 3 mg (0.5 mL) subcut QWEEK Lantus Solostar U-100 Insulin (insulin glargine) 24 units (0.24 mL) subcut DAILY NS losartan 100 mg PO DAILY metformin ER 1,000 mg (2 x 500 mg) PO BID Mounjaro (tirzepatide) 10 mg (0.5 mL) subcut QWEEK NS omeprazole 20 mg PO DAILY rosuvastatin 10 mg PO DAILY sertraline 150 mg (1.5 x 100 mg) PO DAILY Tobacco use date assessed: 09/18/24 Fall risk assessment: 1 Fall in past year Last assessed Fall Risk: 09/18/24 Dental Screening Dental Screen Date: 05/11/24 HPI Follow up HPI Details Patient presents for a follow-up on type 2 diabetes hypertension hyperlipidemia. She complains of chronic right knee pain worse when walking. [facility] Medical History Mammogram declined Vitamin D deficiency Anxiety Colonoscopy refused Normal breast exam Hyperlipidemia HTN (hypertension) DM type 2 (diabetes mellitus, type 2) Surgical History Hx of colonoscopy History of back surgery Family History Father Substance use disorder Mother Hypertension Diabetes COPD (chronic obstructive pulmonary disease) Social History Housing: House Patient Tobacco Use Status: Never used Tobacco e-Cigarette/Vaping Use: Never Used service: No Current occupational status: retired Cognitive needs: No Hearing needs: No Vision needs: Yes Questionnaire PHQ-9 Over the last 2 weeks, how often have you been bothered by any of the following problems? 1. Little interest or pleasure in doing things: not at all 2. Feeling down, depressed, or hopeless: not at all 3. Trouble falling or staying asleep, or sleeping too much: not at all 4. Feeling tired or having little energy: not at all 5. Poor appetite or overeating: not at all 6. Feeling bad about yourself - or that you are a failure or have let yourself or your family down: not at all 7. Trouble concentrating on things, such as reading the newspaper or watching television: not at all 8. Moving or speaking so slowly that other people could have noticed. Or the opposite - being so fidgety or restless that you have been moving around a lot more than usual: not at all 9. Thoughts that you would be better off or of hurting yourself in some way: not at all Total score: 0 Depression Screening Interpretation: Negative Depression Screening Done: Yes 34885 - PHQ-9 Billing: Yes Source: Developed by Drs. Praneeth Modi, Shi Gongora, Jose Miguel Giles and colleagues, with an educational rafiq from [employer]. Thrive Questionnaire Date Thrive assessed: 09/18/24 I am a: Patient What is your living situation today?: I have a steady place to live Within the past 12 months, did the food you bought not last and you didn't have the money to get more?: I choose not to answer this question Within the past 12 months, did you worry whether your food would run out before you got money to buy more?: I choose not to answer this question Do you have trouble paying for medicines?: I choose not to answer this question Do you have trouble getting transportation to medical appointments?: I choose not to answer this question Do you have trouble paying your heating and electricity bill?: No Do you have trouble taking care of your child, family member or friend?: No Do you have trouble with day-to-day activities such as bathing, preparing meals, shopping, managing finances, etc.?: No Are you currently unemployed and looking for a job?: No Are you interested in more education?: No Please select the resources that you would like help with: None Currently or been in a relationship where the following occur: No concerns reported THRIVE Score: 0 AUDIT C Alcohol Use Questionnaire (AUDIT-C) 1. How often do you have a drink containing alcohol?: Never Total Score: 0 JO-7 AMB Questionnaire JO-7 Date JO - 7 assessed: 09/18/24 Feeling nervous, anxious, or on edge: 0 = Not at all Not being able to stop or control worryin = Not at all Worrying too much about different things: 0 = Not at all Trouble relaxin = Not at all Being so restless that it is hard to sit still: 0 = Not at all Becoming easily annoyed or irritable: 0 = Not at all Feeling afraid as if something awful might happen: 0 = Not at all Total JO-7 score (0-4 normal; 5-9 mild; 10-14 moderate; 15-21 severe): 0 Source: Developed by Drs. Praneeth Modi, Shi Gongora, Jose Miguel Giles and colleagues, with an educational rafiq from [employer]. JO-7 Assessment Billing JO-7 Assessment Tool: JO-7 Assessment 10700 Review of Systems Const All systems reviewed & are unremarkable except as noted in HPI and below ENT Reports no additional complaints Card Reports no additional complaints Resp Reports no additional complaints GI Reports no additional complaints Reports no additional complaints Physical exam (Primary Care) Vital Signs: Last Vital Signs Pulse 72 09/18/24 10:33 BP 128/62 09/18/24 10:33 Pulse Ox 98 09/18/24 10:33 Oxygen Delivery Method Room Air 09/18/24 10:33 BMI result Body Mass Index 26.4 Tobacco/Smoking Status: Tobacco use Status Tobacco use date assessed 09/18/24 09/18/24 10:37 Patient Tobacco Use Status Never used Tobacco 09/18/24 10:37 e-Cigarette/Vaping Use Never Used 09/18/24 10:37 PHQ-9: PHQ-9 Score PHQ-9: Total score 0 09/18/24 10:37 Depression Screening Interpretation: Negative Thrive Assessment: Date of Thrive Assessment Date Thrive assessed 09/18/24 09/18/24 10:37 Currently or been in a relationship where the following occur: No concerns reported Const General: no acute distress HENMT Head: Yes normal to inspection Eyes General: appearance normal, both eyes and all related structures Neck Neck: Yes supple Resp Effort & Inspection: normal respiratory effort Auscultation: clear to auscultation bilaterally Cardio Rhythm: regular rhythm Heart sounds: S1 normal heart sound present and S2 normal heart sound present GI Inspection: Yes normal to inspection Palpation (GI): Soft to palpation Extrem Other: Right knee: there is decreased range of motion, medial aspect tenderness, no soft tissue swelling, erythema or warmth Coding Level of Care Code Est Pt Level 4 (50609) Diagnoses Knee pain, right M25.561 HTN (hypertension) I10 DM type 2 (diabetes mellitus, type 2) E11.9 Hyperlipidemia E78.5 Additional Codes JO-7 Assessment Billing - JO-7 Assessment Tool: JO-7 Assessment 20517 ([id number]) PHQ-9 - 01033 - PHQ-9 Billing: Yes ([id number]) Assessment & Plan Assessment & Plan (1) Knee pain, right: Code(s): M25.561 - Pain in right knee Category: Medical Plan: Check x-ray and PT was recommended but patient declined. (2) HTN (hypertension): Code(s): I10 - Essential (primary) hypertension Category: Medical Plan: cont meds (3) DM type 2 (diabetes mellitus, type 2): Code(s): E11.9 - Type 2 diabetes mellitus without complications Category: Medical Plan: check A1C, CONTINUE CURRENT MEDICATION ADA DIET REGULAR EXERCISE (4) Hyperlipidemia: Comment: Intolerant to pravastatin and simvastatin Code(s): E78.5 - Hyperlipidemia, unspecified Category: Medical Plan: Continue statin return for fasting blood work Orders: Orders Comprehensive [place]. Panel Fast Today E11.9 - Type 2 diabetes mellitus without complications, E78.5 - Hyperlipidemia, unspecified, I10 - Essential (primary) hypertension Lipid Panel Today E11.9 - Type 2 diabetes mellitus without complications, E78.5 - Hyperlipidemia, unspecified, I10 - Essential (primary) hypertension TSH reflex Free T4 Today E11.9 - Type 2 diabetes mellitus without complications, E78.5 - Hyperlipidemia, unspecified, I10 - Essential (primary) hypertension Microalbumin, Random (w Creat) Today E11.9 - Type 2 diabetes mellitus without complications, E78.5 - Hyperlipidemia, unspecified, I10 - Essential (primary) hypertension Microalbumin, Random (w Creat) 4 Months E11.9 - Type 2 diabetes mellitus without complications, E78.5 - Hyperlipidemia, unspecified, I10 - Essential (primary) hypertension XR knee RT 2V Today M25.561 - Pain in right knee Hemoglobin A1c Today E11.9 - Type 2 diabetes mellitus without complications, E78.5 - Hyperlipidemia, unspecified, I10 - Essential (primary) hypertension Complete Blood Count Auto Diff Today E11.9 - Type 2 diabetes mellitus without complications, E78.5 - Hyperlipidemia, unspecified, I10 - Essential (primary) hypertension Magnesium Today E11.9 - Type 2 diabetes mellitus without complications, E78.5 - Hyperlipidemia, unspecified, I10 - Essential (primary) hypertension Hemoglobin A1c 4 Months E11.9 - Type 2 diabetes mellitus without complications, E78.5 - Hyperlipidemia, unspecified, I10 - Essential (primary) hypertension Comprehensive [place]. Panel Fast 4 Months E11.9 - Type 2 diabetes mellitus without complications, E78.5 - Hyperlipidemia, unspecified, I10 - Essential (primary) hypertension Lipid Panel 4 Months E11.9 - Type 2 diabetes mellitus without complications, E78.5 - Hyperlipidemia, unspecified, I10 - Essential (primary) hypertension Medications: Discontinued Mounjaro (tirzepatide) Discontinued Reason: Doctor's Order 10 mg (0.5 mL) subcut QWEEK 6 mL 3RF NS
== END 2024-09-18 11:15 | disposition home or self-care (01) ==
PROVIDERS: PCP Internal Medicine; Visit Provider Internal Medicine
DX: M25.561 Pain in right knee (principal); I10 Essential (primary) hypertension; E11.9 Type 2 diabetes mellitus without complications; E78.5 Hyperlipidemia, unspecified

== ENCOUNTER → 2024-09-18 10:32 | Outpatient (BNVA) | payer OTHER, MEDICARE, SELFPAY | PROVIDERS: PCP Internal Medicine; Visit Provider Internal Medicine | DX: M25.561 Pain in right knee (principal); I10 Essential (primary) hypertension; E11.9 Type 2 diabetes mellitus without complications; E78.5 Hyperlipidemia, unspecified; Z79.899 Other long term (current) drug therapy | CPT/HCPCS: 96127 ==

== ENCOUNTER 2025-01-14 09:05 | Outpatient (REF) | payer OTHER, MEDICARE, SELFPAY ==
--- OUTSIDE RECORDS SUMMARY | 2025-01-14 10:25 | XMS_ITS | Encounter Summary ---
Author Organization [facility] Address [address] [place] [address] Care Team Providers Care Security Investigator Name Role Phone Richard Sotelo MD Primary Care Provider [phone] Pcp, No Primary Care Provider [facility] Richard Sotelo MD Primary Care Provider [phone] Encounter Details Date Type Department Care Team (Late st Contact Info) Description 08/04/2018 Scanned Document [address] [phone] Richard Soetlo MD [address] [place] [address] Social History Tobacco Use Types Packs/Day Years Used Date Smoking Tobacco: Never Smokeless Tobacco: Never Alcohol Use Standard Drinks/Week Comments Yes 0 (1 standard drink = 0.6 oz pur e alcohol) socially AUDIT-C Answer Date Recorded Frequency of Alcohol Consumption Never 08/04/2018 Average Number of Drinks Not on file 018 Frequency of Binge Drinking Not on file 11/2017 Sex and Gender Information Value Date Recorded Sex Assigned at Not on file Gender Identity Not on file Sexual Orientation Not on file documented as of this encounter Plan of Treatment Not on file documented as of this encounter Visit Diagnoses Not on filedocumented in this encounter Care Teams Security Investigator Relationship Specialty Start Date End Date Richard Sotelo MD PCP - General Internal Medicine 07/14/18 11/19/18 Pcp, No PCP - General General Medicine 11/20/18 02/17/19 Richard Sotelo MD PCP - General Internal Medicine 02/18/19 07/08/19 documented as of this encounter
--- OUTSIDE RECORDS SUMMARY | 2025-01-14 10:25 | XMS_ITS | Encounter Summary ---
Author Organization [facility] Address [address] [place] [address] Care Team Providers Care Furniture Mover Helper Name Role Phone Richard Sotelo MD Primary Care Provider [phone] Pcp, No [facility] Richard Sotelo MD Primary Care Provider [phone] Encounter Details Date Type Department Care Team (Late st Contact Info) Description 08/11/2018 Scanned Document [address] [phone] Richard Sotelo MD [address] [place] [address] Social History Tobacco Use Types Packs/Day Years [...] on filedocumented in this encounter Care Teams Furniture Mover Helper Relationship Specialty Start Date End Date Richard Sotelo MD PCP - General Internal Medicine 07/14/18 11/19/18 Pcp, No PCP - General General Medicine 11/20/18 02/17/19 Richard Sotelo MD PCP - General Internal Medicine 02/18/19 07/08/19 documented as of this encounter
--- OUTSIDE RECORDS SUMMARY | 2025-01-14 10:25 | XMS_ITS | Encounter Summary ---
Author Organization [facility] Address [address] [place] [address] Care Team Providers Care Ehs Engineer Name Role Phone Richard Sotelo MD Primary Care Provider [phone] Pcp, No [facility] Richard Sotelo MD Primary Care Provider [phone] Encounter Details Date Type Department Care Team (Late st Contact Info) Description 08/11/2018 Scanned Document [address] [phone] Richard Sotelo MD [address] [place] [address] Social History Tobacco Use Types Packs/Day Years [...] on filedocumented in this encounter Care Teams Ehs Engineer Relationship Specialty Start Date End Date Richard Sotelo MD PCP - General Internal Medicine 07/14/18 11/19/18 Pcp, No PCP - General General Medicine 11/20/18 02/17/19 Richard Sotelo MD PCP - General Internal Medicine 02/18/19 07/08/19 documented as of this encounter
--- OUTSIDE RECORDS SUMMARY | 2025-01-14 10:25 | XMS_ITS | Clinical Summary ---
Author Organization [facility] Address [address] [place] [address] Care Team Providers Care General Assistant Name Role Phone Unavailable Primary Care Provider Unavailabl e Allergies Active Allergy Reactions Criticality Noted Date Comments Sulfa Antibiotics Hives Medium 12/16/2017 Medications Medication Sig Dispensed Refills Start Date End Date Status losartan (COZAAR) 25 MG tabletIndications:Id iopathic hypertension Take 1 tablet (25 mg total) by mouth daily. 90 tablet 1 08/19/2018 Active fluticasone (FloNASE) 50 mcg/spray nasal sprayIndications:Sea maryanne allergies 2 sprays into each nostril daily. 3 Bottle 1 08/19/2018 Active atorvastatin (LIPITOR) 40 MG tabletIndications:Ot her hyperlipidemia Take 1 tablet (40 mg total) by mouth daily. 30 tablet 5 08/25/2018 Active cyanocobalamin 100 MCG tabletIndications:Ir on deficiency anemia, unspecified iron deficiency anemia type Take 1 tablet (100 mcg total) by mouth daily. 30 tablet 5 08/25/2018 Active cetirizine (ZyrTEC) 10 MG tablet Active diazepam (VALIUM) 10 MG tablet Active BD PEN NEEDLE SABINO U/F 32G X 4 MM MiscIndications:Type 2 diabetes mellitus without complication, with long-term current use of insulin (HCC) Use with insulin once daily 100 pen needle 3 10/14/2018 Active amLODIPine (NORVASC) 5 MG tabletIndications:Id iopathic hypertension Take 1 tablet (5 mg total) by mouth daily. MUST MAKE APPOINTMENT FOR REFILL 90 tablet 02/18/2019 Active OMEprazole (PriLOSEC) 20 MG capsuleIndications:G astroesophageal reflux disease without esophagitis Take 1 capsule (20 mg total) by mouth daily. MUST MAKE APPOINTMENT FOR REFILL 90 capsule 02/18/2019 Active sertraline (ZOLOFT) 100 MG tabletIndications:De pression, unspecified depression type Take 1 tablet (100 mg total) by mouth daily. MUST MAKE APPOINTMENT FOR REFILL 90 tablet 02/18/2019 Active insulin glargine (LANtus SOLOSTAR) 100 units/mL pen injectionIndications :Type 2 diabetes mellitus without complication, with long-term current use of insulin (HCC) Inject 0.58 mL (58 Units total) under the skin daily. MUST MAKE APPT 15 mL 04/28/2019 Active metFORMIN (GLUCOPHAGE-XR) 500 MG 24 hr tabletIndications:Ty pe 2 diabetes mellitus without complication, with long-term current use of insulin (HCC) TAKE 2 TABLETS TWICE A DAY 360 tablet 5 12/03/2019 Active Active Problems Problem Noted Date Diagnosed Date Iron deficiency anemia 09/03/2018 Diarrhea 09/03/2018 Arthritis 08/04/2018 Other hyperlipidemia 08/04/2018 Depression 08/04/2018 Idiopathic hypertension 08/04/2018 Low back pain 12/17/2017 Sciatica 12/17/2017 Overview (08/04/2018): Last Assessment & Plan: MRI shows disc extrusions at L4-5 causing compression of the nerve root. Case discussed with Dr. Bearden yesterday who is planning for surgical decompression today. Plan: -NPO for surgery today -Continue pain control with oral valium and oxycodone, IV dilaudid PRN severe pain, and gabapentin for neuropathic pain as well. Type 2 diabetes mellitus without complication Overview (08/04/2018): Last Assessment & Plan: Blood sugars elevated on home lantus 52 U so dose increased to 60u last night. Patient has been NPO for surgery today so will continue close monitoring of blood sugars and hold lantus tonight if sugars low (assumoing poor PO intake all day) Plan: -Watch blood sugars closely -Accuchecks QID -MDSS -Hold evening lantus if hypoglycemic or very poor PO intake Immunizations Name Administration Dates Next Due Influenza (AFLURIA/FLUZONE) Inactivated/Split Quadrivalent with Preservative IM 07/12/2018 Family History Medical History Relation Name Comments Alcohol abuse Father Throat cancer Father Tobacco Use Father Cardiomyopathy Mother Diabetes Mother Hypertension Mother Relation Name Status Comments Father (Age 64) Mother (Age 64) Social History Tobacco Use Types Packs/Day Years [...] on file Sexual Orientation Not on file Last Filed Vital Signs Vital Sign Reading Time Taken Comments Blood Pressure 116/78 09/03/2018 8:55 AM EDT Pulse 84 09/03/2018 8:55 AM EDT Temperature 36.6 ??C (97.9 ??F) 09/03/2018 8:55 AM ED T Respiratory Rate 14 09/03/2018 8:55 AM EDT Oxygen Saturation 98% 09/03/2018 8:55 AM EDT Inhaled Oxygen Concentration - - Weight 68.1 kg (150 lb 3.2 oz) 09/03/2018 8:55 A M EDT Height 152.4 cm (5') 09/03/2018 8:55 AM EDT Body Mass Index 29.33 09/03/2018 8:55 AM EDT Plan of Treatment Health Maintenance Due Date Last Done Comments Foot Exam 1965 Ophthalmology Exam 1965 Microalbumin/Creatinine Rati o Urine 1973 DTaP/Tdap/Td Vaccines (1 - Tdap) 1974 Pneumococcal Vaccines 50+ (1 of 2 - PCV) 1974 Mammogram 1995 Colonoscopy 2005 Zoster (Shingles) Vaccine (1 of 2) 2005 RSV Vaccine 60 years and old er and Patients (1 - Risk 60-74 years 1-dose series) 2015 Hemoglobin A1C 02/02/2019 08/04/2018 Creatinine with GFR 08/12/2019 08/12/2018 Lipid Panel 08/12/2019 08/12/2018 DXA Bone Density (Females,Ag es 65 and older) 2020 Influenza Vaccine 06/04/2024 07/12/2018 COVID-19 Vaccine ( - 2023-2 5 season) 2024 Hepatitis C Virus Screening Completed 08/12/2018 Hepatitis B Vaccines Aged Out No long er eligible based on patient's age to complete this topic Procedures Procedure Name Priority Date/Time Associated Diagnosis Comments LIPID PANEL REFLEX DIRECT LDL Routine 08/12/2018 9:33 AM EDT Other hyperlipidemia COMPREHENSIVE METABOLIC PANEL Routine 08/12/2018 9:33 AM EDT Other hyperlipidemia HEPATITIS C VIRUS (HCV) ANTIBODY Routine 08/12/2018 9:33 AM EDT Idiopathic hypertension POCT GLYCOSYLATED HEMOGLOBIN (HGB A1C) Routine 08/04/2018 4:37 PM EDT Type 2 diabetes mellitus without complication, with long-term current use of insulin (HCC) from Last 3 Months or Most Recently Relevant to Health Maintenance Results * (ABNORMAL) Lipid Panel Reflex Direct LDL ([facility]) (08/12/2018 9:33 AM EDT) Cholesterol, Total 174 <200 mg/dL [facility] Cholesterol, HDL 38(L) >50 mg/dL [facility] Triglycerides 175(H) <150 mg/dL [facility] LDL Cholesterol 107(H) mg/dL (calc) [facility] Comment: Reference range: <100 Desirable range <100 mg/dL for primary prevention; ?? <70 mg/dL for patients with CHD or diabetic patients with > or = 2 CHD risk factors. LDL-C is now calculated using the Enio-Bernardino calculation, which is a validated novel method providing better accuracy than the Friedewald equation in the estimation of LDL-C. Enio ZARAGOZA et al. MYNOR. 2013;310(19): 1120-9005 (http://education.[employer]/faq/LHD848) Cholesterol/HDL Ratio 4.6 <5.0 (calc) [facility] Non HDL Chol. (LDL+VLDL) 136(H) <130 mg/dL (calc) [facility] Comment: For patients with diabetes plus 1 major ASCVD risk factor, treating to a non-HDL-C goal of <100 mg/dL (LDL-C of <70 mg/dL) is considered a therapeutic option. Blood specimen (specimen) 08/12/2018 9:33 AM EDT 08/12/2018 9:33 AM EDT Narrative [facility] - 08/15/2018 6:10 PM EDT FASTING:YES FASTING: YES Resulting Agency Comment Performing Organization Information: ?Site ID: [id number] ?Name: [facility] ?Address: [address] [place] [id number] ?Director: Tyler Johnson MD Richard Sotelo MD LAB BLOOD ORDERABLES Performing Organization Address [facility] de Phone Number [facility] [address] [place] [id number] * Hepatitis C Virus (HCV) Antibody (08/12/2018 9:33 AM EDT) Hepatitis C Antibody NON-REACTI VE NON-REACT ALEXIS [facility] Hepatitis C Antibody (s/co) 0.01 <1.00 [facility] Blood specimen (specimen) 08/12/2018 9:33 AM EDT 08/12/2018 9:33 AM EDT Narrative [facility] - 08/15/2018 6:10 PM EDT FASTING:YES FASTING: YES Resulting Agency Comment Performing Organization Information: ?Site ID: [id number] ?Name: [facility] ?Address: [address] [place] [phone] ?Director: Tyler Johnson MD Richard Sotelo MD LAB BLOOD ORDERABLES Performing Organization Address [facility] de Phone Number [facility] [address] [place] [address] * Comprehensive Metabolic Panel (08/12/2018 9:33 AM EDT) Glucose 91 65 - 99 mg/dL [facility] Comment: ? Fasting reference interval Blood Urea Nitrogen (BUN) 14 7 - 25 mg/dL [facility] Creatinine 0.68 0.50 - 0.99 mg/dL [facility] Comment: For patients >49 years of age, the reference limit for Creatinine is approximately 13% higher for people identified as -Guamanian. eGFR Non- 93 > OR = 60 mL/min/1 .73m2 [facility] eGFR 108 > OR = 60 mL/min/1 .73m2 [facility] BUN/Creatinine Ratio NOT APPLICABLE 6 - 22 (calc) [facility] Sodium 139 135 - 146 mmol/L [facility] Potassium 4.3 3.5 - 5.3 mmol/L [facility] Chloride 103 98 - 110 mmol/L [facility] CO2 28 20 - 32 mmol/L [facility] Calcium 9.1 8.6 - 10.4 mg/dL [facility] Protein, Total 6.5 6.1 - 8.1 g/dL [facility] Albumin 4.4 3.6 - 5.1 g/dL [facility] Globulin 2.1 1.9 - 3.7 g/dL (calc) [facility] Albumin/Globulin Ratio 2.1 1.0 - 2.5 (calc) [facility] Bilirubin, Total 0.4 0.2 - 1.2 mg/dL [facility] Alkaline Phosphatase 77 33 - 130 U/L [facility] Aspartate Aminotrans (AST) 19 10 - 35 U/L [facility] Alanine Aminotrans (ALT) 17 6 - 29 U/L [facility] Blood specimen (specimen) 08/12/2018 9:33 AM EDT 08/12/2018 9:33 AM EDT Narrative [facility] - 08/15/2018 6:10 PM EDT FASTING:YES FASTING: YES Resulting Agency Comment Performing Organization Information: ?Site ID: [id number] ?Name: [facility] ?Address: [address] [place] [address], [place] [address] ?Director: Tyler Johnson MD Richard Sotelo MD LAB BLOOD ORDERABLES [facility] [address] [facility] [address] Floor, [place] [address] * (ABNORMAL) POCT Glycosylated Hemoglobin (Hb A1C) (08/04/2018 4:37 PM EDT) Hemoglobin A1C 8.2(A) 4.0 - 6.0 % Lot Number [id number] [employer] [place] Blood specimen (specimen) 08/04/2018 4:37 PM EDT Richard Sotelo MD POINT OF CARE TEST O RDERABLES from Last 3 Months or Most Recently Relevant to Health Maintenance
--- OUTSIDE RECORDS SUMMARY | 2025-01-14 10:25 | XMS_ITS | Encounter Summary ---
Author Organization [facility] Address [address] [place] [address] Care Team Providers Care Bulk Coolers Installer Name Role Phone Unavailable Primary Care Provider Unavailabl e Reason for Visit * Reason Comments Medication Refill Encounter Details Date Type Department Care Team (Late st Contact Info) Description 01/07/[address] [phone] Richard Sotelo MD [address] [place] [address] Type 2 diabetes mellitus without complication, with long-term current use of insulin (HCC) Social History Tobacco Use Types Packs/Day Years [...] on file documented as of this encounter Miscellaneous Notes * Telephone Encounter - Renae Hutchinson - 01/09/2021 9:49 AM EST lvm to see if she is still a patient with dr sotelo * Telephone Encounter - Richard Sotelo MD - 01/08/2021 8:05 AM EST Please call patient, we received refill request but she has not been seen since 2018. Needs to comein or is she seeing another provider? documented in this encounter Plan of Treatment Not on file documented as of this encounter Visit Diagnoses Diagnosis Type 2 diabetes mellitus without complication, with long-term current use of insulin (HCC) documented in this encounter
[2025-01-14 10:35] LABS: Alanine Aminotransferase 18 U/L (0-31); Albumin Level 4.3 g/dL (3.5-5.0); Alkaline Phosphatase 56 U/L (39-117); Anion Gap 12 (12-20); Aspartate Amino Transferase 25 U/L (5-31); Bilirubin Total 0.3 mg/dL (0.0-1.0); Blood Urea Nitrogen 23 mg/dL (9-16); Calcium 9.2 mg/dL (8.4-10.2); Carbon Dioxide 28 mmol/L (22-29); Chloride 106 mmol/L (96-108); Cholesterol 133 mg/dL (<200); Estimated Glomerular Filt Rate > 60; Glucose Fasting 122 mg/dL (60-99); HDL Cholesterol 41 mg/dL (>40); LDL Cholesterol Calculated 59 mg/dL (<100); Potassium 4.7 mmol/L (3.3-5.1); Sodium 141 mmol/L (135-145); Total Protein 7.2 g/dL (6.5-8.0); Triglycerides 165 mg/dL (<150)
[2025-01-14 10:41] LABS: Creatinine Urine 99.34 mg/dL; Microalbum/Creatinine Ratio Ur 28.1 ug/mg cr (<30)
[2025-01-14 10:49] LABS: Estimated Average Glucose 137 mg/dL; Hemoglobin A1C 132.1456 umol/L; Hemoglobin A1c % 6.4 % (<6.0)
== END 2025-01-14 09:06 | disposition home or self-care (01) ==
LOC: HO.HMGCLDS 09:05
PROVIDERS: PCP Internal Medicine; Visit Provider Internal Medicine
DX: I10 Essential (primary) hypertension (principal); E78.5 Hyperlipidemia, unspecified; E11.9 Type 2 diabetes mellitus without complications
CPT/HCPCS: 36415; 80053; 80061; 82043; 82570; 83036

== ENCOUNTER 2025-01-15 12:18 | Outpatient (AMB) | payer OTHER, MEDICARE, SELFPAY ==
[2025-01-15 12:39] VITALS: BP 126/60; PULSE 84; RESP 18; TEMP 36.8; O2SAT 96; BMI 26.4
--- NOTE | 2025-01-15 12:39 | MHC.PC.OV ---
Vital Signs 01/15/25 12:39 Height 5 ft Weight 135 lb BMI 26.4 BP 126/60 Blood Pressure Location Lt brachial Position Sitting Respiration 18 Pulse 84 Pulse Source Pulse Oximeter Temp 98.3 F Temp Source Oral Pulse Oximetry (%) 96 Oxygen Delivery Method Room Air Intake Visit Reasons: 4m follow up Intake Note: Pt is here today for 4 months follow up visit on labs. Allergies Sulfa (Sulfonamide Antibiotics) [SULFA (SULFONAMIDE ANTIBIOTICS)] Allergy (Unknown, Verified 01/15/25 12:39) HIVES pravastatin Adverse Reaction (Intermediate, Verified 01/15/25 12:39) Diarrhea Medication List - Last Reconciled 01/15/25 by Radha Nair MD amlodipine 5 mg PO DAILY BD Ultra-Fine Natalie Pen Needle (pen needle, diabetic) 1 ea miscellaneous DAILY NS blood sugar diagnostic (Qraveduch Ultra Test strips) 1 QD cetirizine (Zyrtec) 10 mg PO DAILY PRN dapagliflozin propanediol (Farxiga) 10 mg PO DAILY Dexcom G7 Sensor (blood-glucose sensor) As directed NS dulaglutide (Trulicity) 3 mg (0.5 mL) subcut QWEEK Lantus Solostar U-100 Insulin (insulin glargine) 24 units (0.24 mL) subcut DAILY NS losartan 100 mg PO DAILY metformin ER 1,000 mg (2 x 500 mg) PO BID omeprazole 20 mg PO DAILY rosuvastatin 10 mg PO DAILY sertraline 150 mg (1.5 x 100 mg) PO DAILY Trulicity (dulaglutide) 4.5 mg (0.5 mL) subcut QWEEK NS Tobacco use date assessed: 01/15/25 Fall risk assessment: No Falls in past year Last assessed Fall Risk: 01/15/25 Dental Screening Dental Screen Date: 01/15/25 Did you have a dental visit in the last 12 months?: Yes Did you have a dental problem in the last 6 months where you did not have access to dental care?: No Was dental information given to patient?: Patient has dentist HPI 4m follow up HPI Details Patient presents for the follow-up of hypertension hyperlipidemia insulin-dependent diabetes chronic anxiety stable on current medications. [facility] Medical History Mammogram declined Vitamin D deficiency Anxiety Colonoscopy refused Normal breast exam Hyperlipidemia HTN (hypertension) DM type 2 (diabetes mellitus, type 2) Surgical History Hx of colonoscopy History of back surgery Family History Father Substance use disorder Mother Hypertension Diabetes COPD (chronic obstructive pulmonary disease) Social History Housing: House Patient Tobacco Use Status: Never used Tobacco e-Cigarette/Vaping Use: Never Used service: No Current occupational status: retired Cognitive needs: No Hearing needs: No Vision needs: Yes Questionnaire PHQ-9 Over the last 2 weeks, how often have you been bothered by any of the following problems? 1. Little interest or pleasure in doing things: not at all 2. Feeling down, depressed, or hopeless: not at all 3. Trouble falling or staying asleep, or sleeping too much: not at all 4. Feeling tired or having little energy: not at all 5. Poor appetite or overeating: not at all 6. Feeling bad about yourself - or that you are a failure or have let yourself or your family down: not at all 7. Trouble concentrating on things, such as reading the newspaper or watching television: not at all 8. Moving or speaking so slowly that other people could have noticed. Or the opposite - being so fidgety or restless that you have been moving around a lot more than usual: not at all 9. Thoughts that you would be better off or of hurting yourself in some way: not at all Total score: 0 Depression Screening Interpretation: Negative Depression Screening Done: Yes 85990 - PHQ-9 Billing: Yes Source: Developed by Drs. Praneeth Modi, Shi Gongora, Jose Miguel Giles and colleagues, with an educational rafiq from [employer]. Thrive Questionnaire Date Thrive assessed: 01/15/25 I am a: Patient What is your living situation today?: I have a steady place to live Within the past 12 months, did the food you bought not last and you didn't have the money to get more?: Never true Within the past 12 months, did you worry whether your food would run out before you got money to buy more?: Never true Do you have trouble paying for medicines?: No Do you have trouble getting transportation to medical appointments?: No Do you have trouble paying your heating and electricity bill?: No Do you have trouble taking care of your child, family member or friend?: No Do you have trouble with day-to-day activities such as bathing, preparing meals, shopping, managing finances, etc.?: No Are you currently unemployed and looking for a job?: No Are you interested in more education?: No Please select the resources that you would like help with: None Currently or been in a relationship where the following occur: No concerns reported THRIVE Score: 0 AUDIT C Alcohol Use Questionnaire (AUDIT-C) 1. How often do you have a drink containing alcohol?: Never 3. How often do you have six or more drinks on one occasion?: Never Total Score: 0 JO-7 AMB Questionnaire JO-7 Date JO - 7 assessed: 01/15/25 Feeling nervous, anxious, or on edge: 0 = Not at all Not being able to stop or control worryin = Not at all Worrying too much about different things: 0 = Not at all Trouble relaxin = Not at all Being so restless that it is hard to sit still: 0 = Not at all Becoming easily annoyed or irritable: 0 = Not at all Feeling afraid as if something awful might happen: 0 = Not at all Total JO-7 score (0-4 normal; 5-9 mild; 10-14 moderate; 15-21 severe): 0 Source: Developed by Drs. Praneeth Modi, Shi Gongora, Jose Miguel Giles and colleagues, with an educational rafiq from [employer]. JO-7 Assessment Billing OJ-7 Assessment Tool: JO-7 Assessment 60673 Review of Systems Const All systems reviewed & are unremarkable except as noted in HPI and below Eyes Reports no additional complaints ENT Reports no additional complaints Card Reports no additional complaints Resp Reports no additional complaints GI Reports no additional complaints Reports no additional complaints Physical exam (Primary Care) Vital Signs: Last Vital Signs Temp 98.3 F 01/15/25 12:39 Pulse 84 01/15/25 12:39 Resp 18 01/15/25 12:39 BP 126/60 01/15/25 12:39 Pulse Ox 96 01/15/25 12:39 Oxygen Delivery Method Room Air 01/15/25 12:39 BMI result Body Mass Index 26.4 Tobacco/Smoking Status: Tobacco use Status Tobacco use date assessed 01/15/25 01/15/25 12:40 Patient Tobacco Use Status Never used Tobacco 01/15/25 12:40 e-Cigarette/Vaping Use Never Used 01/15/25 12:40 PHQ-9: PHQ-9 Score PHQ-9: Total score 0 01/15/25 12:48 Depression Screening Interpretation: Negative Thrive Assessment: Date of Thrive Assessment Date Thrive assessed 01/15/25 01/15/25 12:48 Currently or been in a relationship where the following occur: No concerns reported Const General: no acute distress Eyes General: appearance normal, both eyes and all related structures Resp Effort & Inspection: normal respiratory effort Auscultation: clear to auscultation bilaterally Cardio Rhythm: regular rhythm Heart sounds: S1 normal heart sound present and S2 normal heart sound present GI Inspection: Yes normal to inspection Palpation (GI): Soft to palpation Percussion: Yes normal to percussion Auscultation: normal bowel sounds Coding Level of Care Code Est Pt Level 4 (80504) Complex EM visit Add On G2211 Diagnoses HTN (hypertension) I10 DM type 2 (diabetes mellitus, type 2) E11.9 Hyperlipidemia E78.5 Anxiety F41.9 Additional Codes JO-7 Assessment Billing - JO-7 Assessment Tool: JO-7 Assessment 23829 ([id number]) PHQ-9 - 05700 - PHQ-9 Billing: Yes ([id number]) Assessment & Plan Assessment & Plan (1) HTN (hypertension): Code(s): I10 - Essential (primary) hypertension Category: Medical Plan: Continue current medications (2) DM type 2 (diabetes mellitus, type 2): Code(s): E11.9 - Type 2 diabetes mellitus without complications Category: Medical Plan: A1c is 6.4, increase Trulicity to 4.5 mg continue insulin metformin and Farxiga follow-up in 4 months with a fasting labs before (3) Hyperlipidemia: Comment: Intolerant to pravastatin and simvastatin Code(s): E78.5 - Hyperlipidemia, unspecified Category: Medical Plan: Continue statin (4) Anxiety: Code(s): F41.9 - Anxiety disorder, unspecified Category: Medical Plan: Continue sertraline Orders: Orders [facility]. Panel Fast 4 Months E11.9 - Type 2 diabetes mellitus without complications, E78.5 - Hyperlipidemia, unspecified, I10 - Essential (primary) hypertension Lipid Panel 4 Months E11.9 - Type 2 diabetes mellitus without complications, E78.5 - Hyperlipidemia, unspecified, I10 - Essential (primary) hypertension Hemoglobin A1c 4 Months E11.9 - Type 2 diabetes mellitus without complications, E78.5 - Hyperlipidemia, unspecified, I10 - Essential (primary) hypertension Complete Blood Count Auto Diff 4 Months E11.9 - Type 2 diabetes mellitus without complications, E78.5 - Hyperlipidemia, unspecified, I10 - Essential (primary) hypertension Microalbumin, Random (w Creat) 4 Months E11.9 - Type 2 diabetes mellitus without complications, E78.5 - Hyperlipidemia, unspecified, I10 - Essential (primary) hypertension TSH reflex Free T4 4 Months E11.9 - Type 2 diabetes mellitus without complications, E78.5 - Hyperlipidemia, unspecified, I10 - Essential (primary) hypertension Medications: New Trulicity (dulaglutide) 4.5 mg (0.5 mL) subcut QWEEK 2 mL 4RF NS Discontinued dulaglutide (Trulicity) Discontinued Reason: Doctor's Order 3 mg (0.5 mL) subcut QWEEK 6 mL 2RF
--- OUTSIDE RECORDS SUMMARY | 2025-01-15 13:57 | XMS_ITS | Encounter Summary ---
Author Organization [facility] Address [address] [place] [address] Care Team Providers Care Bdr Name Role Phone Richard Sotelo MD Primary Care Provider [phone] Pcp, No Primary Care [facility] Richard Sotelo MD Primary Care Provider Encounter Details Date Type Department Care Team (Late st Contact Info) Description 08/04/2018 Scanned Document [address] [phone] Richard Sotelo MD [address] [place] [address] Social History Tobacco Use Types Packs/Day Years [...] on filedocumented in this encounter Care Teams Bdr Relationship Specialty Start Date End Date Richard Sotelo MD PCP - General Internal Medicine 07/14/18 11/19/18 Pcp, No PCP - General General Medicine 11/20/18 02/17/19 Richard Sotelo MD PCP - General Internal Medicine 02/18/19 07/08/19 documented as of this encounter
--- OUTSIDE RECORDS SUMMARY | 2025-01-15 13:57 | XMS_ITS | Encounter Summary ---
Author Organization [facility] Address [address] [place] [address] Care Team Providers Care Wall Steamer Name Role Phone Richard Sotelo MD Primary Care Provider [phone] Pcp, No [facility]otelo MD Primary Care Provider [phone] Encounter Details Date Type Department Care Team (Late st Contact Info) Description 08/11/2018 Scanned Document [address] [phone] Richard Sotelo MD [address] [place] [address] Social History Tobacco Use Types Packs/Day Years [...] on filedocumented in this encounter Care Teams Wall Steamer Relationship Specialty Start Date End Date Richard Sotelo MD PCP - General Internal Medicine 07/14/18 11/19/18 Pcp, No PCP - General General Medicine 11/20/18 02/17/19 Richard Sotelo MD PCP - General Internal Medicine 02/18/19 07/08/19 documented as of this encounter
--- OUTSIDE RECORDS SUMMARY | 2025-01-15 13:57 | XMS_ITS | Encounter Summary ---
Author Organization [facility] Address [address] [place] [address] Care Team Providers Care Deicer Inspector Pneumatic Name Role Phone Unavailable Primary Care Provider Unavailabl e Reason for Visit * Reason Comments Medication Refill Encounter Details Date Type Department Care Team (Late st Contact Info) Description 01/07/[address] [phone] Richard Sotelo MD [address] [place] [address] Type 2 diabetes mellitus without complication, with [...]
--- OUTSIDE RECORDS SUMMARY | 2025-01-15 13:57 | XMS_ITS | Clinical Summary ---
Author Organization [facility] Address [address] [place] [address] Care Team Providers Care Manuscript Reader Name Role Phone Unavailable Primary Care Provider [...] LDL-C. Enio ZARAGOZA et al. MYNOR. 2013;310(19): 6488-1734 ([email or web address]) Cholesterol/HDL Ratio 4.6 <5.0 (calc) [facility] [...] Performing Organization Information: ?Site ID: [id number] ?Name: [employer] ?Address: [address] [place] [phone] ?Director: Tyler Johnson MD Richard Sotelo MD LAB BLOOD ORDERABLES Performing Organization Address [facility] de Phone Number [employer] [facility] [address] [place] [address] * Hepatitis C Virus (HCV) Antibody (08/12/2018 9:33 AM EDT) Hepatitis C Antibody NON-REACTI VE NON-REACT ALEXIS [facility] Hepatitis C Antibody (s/co) 0.01 <1.00 [facility] Blood specimen (specimen) 08/12/2018 9:33 AM EDT 08/12/2018 9:33 AM EDT Narrative [facility] - 08/15/2018 6:10 PM EDT FASTING:YES FASTING: YES Resulting Agency Comment Performing Organization Information: ?Site ID: [id number] ?Name: [employer] ?Address: [address] [place] [phone] ?Director: Tyler Johnson MD Richard Sotelo MD LAB BLOOD ORDERABLES Performing Organization Address [facility] de Phone Number [facility] [facility] [address] [place] [address] * Comprehensive Metabolic Panel (08/12/2018 9:33 AM EDT) Glucose 91 65 - 99 mg/dL [facility] Comment: ? Fasting reference interval Blood Urea Nitrogen (BUN) 14 7 - 25 mg/dL [facility] Creatinine 0.68 0.50 - 0.99 mg/dL [facility] Comment: For patients >49 years of age, the reference limit for Creatinine is approximately 13% higher for people identified as -[place]ong[place]. eGFR Non- 93 > OR = 60 [...] Performing Organization Information: ?Site ID: [id number] ?Name: [employer] ?Address: [address] [place] [address], [place] [address] ?Director: Tyler Johnson MD Richard Sotelo MD LAB BLOOD ORDERABLES [facility] [address] [facility] [address] Floor, [place] [address] * (ABNORMAL) POCT Glycosylated Hemoglobin (Hb A1C) (08/04/2018 4:37 PM EDT) Hemoglobin A1C 8.2(A) 4.0 - 6.0 % Lot Number [id number] Basic Acoustic Analyst Pass Pass Blood specimen (specimen) 08/04/2018 4:37 PM EDT Richard Sotelo MD POINT OF CARE TEST O RDERABLES from Last 3 Months or Most Recently Relevant to Health Maintenance
--- OUTSIDE RECORDS SUMMARY | 2025-01-15 13:57 | XMS_ITS | Encounter Summary ---
Author Organization [facility] Address [address] [place] [address] Care Team Providers Care Tug Captain Name Role Phone Richard Sotelo MD Primary Care Provider [phone] Pcp, No [facility] MD Primary Care Provider [phone] Encounter Details Date Type Department Care Team (Late st Contact Info) Description 08/11/2018 Scanned Document [address] [phone] Richard Sotelo MD [address] [place] [address] Social History Tobacco Use Types Packs/Day Years [...] on filedocumented in this encounter Care Teams Tug Captain Relationship Specialty Start Date End Date Richard Sotelo MD PCP - General Internal Medicine 07/14/18 11/19/18 Pcp, No PCP - General General Medicine 11/20/18 02/17/19 Richard Sotelo MD PCP - General Internal Medicine 02/18/19 07/08/19 documented as of this encounter
== END 2025-01-15 13:43 | disposition home or self-care (01) ==
LOC: HO.HMCC 12:19
PROVIDERS: PCP Internal Medicine; Visit Provider Internal Medicine
DX: I10 Essential (primary) hypertension (principal); E11.9 Type 2 diabetes mellitus without complications; E78.5 Hyperlipidemia, unspecified; F41.9 Anxiety disorder, unspecified

== ENCOUNTER → 2025-01-15 12:18 | Outpatient (BNVA) | payer OTHER, MEDICARE, SELFPAY | PROVIDERS: PCP Internal Medicine; Visit Provider Internal Medicine | DX: I10 Essential (primary) hypertension (principal); E11.9 Type 2 diabetes mellitus without complications; E78.5 Hyperlipidemia, unspecified; F41.9 Anxiety disorder, unspecified; Z79.84 Long term (current) use of oral hypoglycemic drugs; Z79.85 Long-term (current) use of injectable non-insulin antidiabetic drugs; Z79.899 Other long term (current) drug therapy | CPT/HCPCS: 96127 ==

== ENCOUNTER 2025-10-15 08:15 | Outpatient (REF) | payer OTHER, MEDICARE, SELFPAY ==
[2025-10-15 10:11] LABS: MANUAL DIFF FLAG NO
[2025-10-15 10:21] LABS: Hematocrit 36.7 % (37.0-47.0); Hemoglobin 11.3 g/dl (12.0-16.0); Imm Gran Abs Auto 0.02 X10*3/uL (0.00-0.03); Imm Gran Pct Auto 0.4 % (0.0-0.4); Lymphocytes Absolute Auto 1.7 X10*3/uL (1.2-4.9); Mean Corpuscular HGB Conc 30.8 g/dl (31.0-35.0); Mean Corpuscular Hemoglobin 26.0 pg (27.0-33.0); Mean Corpuscular Volume 84.6 fL (80.0-98.0); NRBC Abs Auto 0.000 X10*3/uL (0.0-0.012); NRBC Pct Auto 0.0 /100WBC (0.0-0.2); Platelet Count 160 X10*3/uL (160-400); Red Blood Count 4.34 X10*6/uL (4.20-5.50); White Blood Count 5.1 X10*3/uL (4.8-10.8)
[2025-10-15 10:56] LABS: Microalbum/Creatinine Ratio Ur 39.0 ug/mg cr (<30)
[2025-10-15 11:03] LABS: Alanine Aminotransferase 18 U/L (0-31); Albumin Level 4.6 g/dL (3.5-5.0); Alkaline Phosphatase 57 U/L (39-117); Anion Gap 13 (12-20); Aspartate Amino Transferase 32 U/L (5-31); Blood Urea Nitrogen 19 mg/dL (9-16); Calcium 9.1 mg/dL (8.4-10.2); Carbon Dioxide 26 mmol/L (22-29); Chloride 106 mmol/L (96-108); Cholesterol 137 mg/dL (<200); Estimated Glomerular Filt Rate > 60; HDL Cholesterol 41 mg/dL (>40); Potassium 4.6 mmol/L (3.3-5.1); Sodium 140 mmol/L (135-145); Total Protein 6.8 g/dL (6.5-8.0); Triglycerides 154 mg/dL (<150)
== END 2025-10-15 08:16 | disposition home or self-care (01) ==
LOC: HO.HMGCLDS 08:15
PROVIDERS: PCP Internal Medicine; Visit Provider Internal Medicine
DX: I10 Essential (primary) hypertension (principal); E11.9 Type 2 diabetes mellitus without complications; E78.5 Hyperlipidemia, unspecified; R01.1 Cardiac murmur, unspecified
CPT/HCPCS: 36415; 80053; 80061; 82043; 82570; 83036; 84443; 85025

== ENCOUNTER 2025-10-15 10:47 | Outpatient (AMB) | payer OTHER, MEDICARE, SELFPAY ==
--- NOTE | 2025-10-15 11:00 | MHC.PC.OV ---
Vital Signs 10/15/25 11:01 Height 5 ft Weight 134 lb BMI 26.2 BP 118/62 Blood Pressure Location Lt brachial Position Sitting Respiration 16 Pulse 82 Pulse Source Pulse Oximeter Temp 98.6 F Temp Source Oral Pulse Oximetry (%) 97 Oxygen Delivery Method Room Air Intake Visit Reasons: Follow up. Intake Note: Pt is here today for a follow up visit on DM/labs. Allergies Sulfa (Sulfonamide Antibiotics) (SULFA (SULFONAMIDE ANTIBIOTICS)) Allergy (Unknown, Verified 10/15/25 11:02) HIVES pravastatin Adverse Reaction (Intermediate, Verified 10/15/25 11:02) Diarrhea Medication List - Last Reconciled 10/15/25 by Radha Nair MD amlodipine 5 mg PO DAILY BD Ultra-Fine Natalie Pen Needle (pen needle, diabetic) 1 ea miscellaneous DAILY NS blood sugar diagnostic ([employer] Ultra Test strips) 1 QD cetirizine (Zyrtec) 10 mg PO DAILY PRN dapagliflozin propanediol (Farxiga) 10 mg PO DAILY Dexcom G7 Sensor (blood-glucose sensor) As directed NS Lantus Solostar U-100 Insulin (insulin glargine) 24 units (0.24 mL) subcut DAILY NS losartan 100 mg PO DAILY metformin ER 1,000 mg (2 x 500 mg) PO BID omeprazole 20 mg PO DAILY rosuvastatin 10 mg PO DAILY sertraline 150 mg (1.5 x 100 mg) PO DAILY sertraline 150 mg (1.5 x 100 mg) PO DAILY Trulicity (dulaglutide) 4.5 mg (0.5 mL) subcut QWEEK NS Tobacco use date assessed: 10/15/25 Fall risk assessment: No Falls in past year Last assessed Fall Risk: 10/15/25 Dental Screening Dental Screen Date: 01/15/25 HPI Follow up. HPI Details Pt presents for HTN, DM 2. hyperlipid, stable on meds. Pt has been compliant using Cpap for a least 6 hr nightly. PFSH Medical History (Updated 10/15/25 @ 15:59 by Radha Nair MD) Obstructive sleep apnea Mammogram declined Vitamin D deficiency Anxiety Colonoscopy refused Normal breast exam Hyperlipidemia HTN (hypertension) DM type 2 (diabetes mellitus, type 2) Surgical History Hx of colonoscopy History of back surgery Family History Father Substance use disorder Mother Hypertension Diabetes COPD (chronic obstructive pulmonary disease) Social History Housing: House Patient Tobacco Use Status: Never used Tobacco e-Cigarette/Vaping Use: Never Used service: No Current occupational status: retired Cognitive needs: No Hearing needs: No Vision needs: Yes Questionnaire Thrive Questionnaire Date Thrive assessed: 01/15/25 I am a: Patient What is your living situation today?: I have a steady place to live Within the past 12 months, did the food you bought not last and you didn't have the money to get more?: Never true Within the past 12 months, did you worry whether your food would run out before you got money to buy more?: Never true Do you have trouble paying for medicines?: No Do you have trouble getting transportation to medical appointments?: No Do you have trouble paying your heating and electricity bill?: No Do you have trouble taking care of your child, family member or friend?: No Do you have trouble with day-to-day activities such as bathing, preparing meals, shopping, managing finances, etc.?: No Are you currently unemployed and looking for a job?: No Are you interested in more education?: No Please select the resources that you would like help with: None Currently or been in a relationship where the following occur: No concerns reported THRIVE Score: 0 JO-7 AMB Questionnaire JO-7 Date JO - 7 assessed: 01/15/25 Source: Developed by Drs. Praneeth Modi, Shi Gongora, Jose Miguel Giles and colleagues, with an educational rafiq from [employer]. Review of Systems Const All systems reviewed & are unremarkable except as noted in HPI and below Eyes Reports no additional complaints ENT Reports no additional complaints Card Reports no additional complaints Resp Reports no additional complaints GI Reports no additional complaints Reports no additional complaints Physical exam (Primary Care) Vital Signs: Last Vital Signs Temp 98.6 F 10/15/25 11:01 Pulse 82 10/15/25 11:01 Resp 16 10/15/25 11:01 BP 118/62 10/15/25 11:01 Pulse Ox 97 12/12/25 11:01 Oxygen Delivery Method Room Air 10/15/25 11:01 BMI result Body Mass Index 26.2 Tobacco/Smoking Status: Tobacco use Status Tobacco use date assessed 10/15/25 10/15/25 11:07 Patient Tobacco Use Status Never used Tobacco 10/15/25 11:07 e-Cigarette/Vaping Use Never Used 10/15/25 11:07 Thrive Assessment: Date of Thrive Assessment Date Thrive assessed 01/15/25 10/15/25 11:07 Currently or been in a relationship where the following occur: No concerns reported Const General: no acute distress HENMT Head: Yes normal to inspection Ears: TM's normal bilaterally Face and sinus: Yes normal facial exam Mouth: Normal oral and palatal mucosa present Eyes General: appearance normal, both eyes and all related structures Neck Neck: Yes no lymphadenopathy and Yes supple Resp Effort & Inspection: normal respiratory effort Auscultation: clear to auscultation bilaterally Cardio Rhythm: regular rhythm Heart sounds: S1 normal heart sound present and S2 normal heart sound present GI Inspection: Yes normal to inspection Palpation (GI): Soft to palpation Neuro Coordination: [id number] test normal Coding Level of Care Code Est Pt Level 4 (58813) Diagnoses Heart murmur R01.1 Anxiety F41.9 HTN (hypertension) I10 Hyperlipidemia E78.5 DM type 2 (diabetes mellitus, type 2) E11.9 Obstructive sleep apnea G47.33 Assessment & Plan Assessment & Plan (1) Heart murmur: Code(s): R01.1 - Cardiac murmur, unspecified Category: Medical Plan: Obtain echocardiogram (2) Anxiety: Code(s): F41.9 - Anxiety disorder, unspecified Category: Medical Plan: Restart sertraline (3) HTN (hypertension): Code(s): I10 - Essential (primary) hypertension Category: Medical Plan: Continue current medications (4) Hyperlipidemia: Comment: Intolerant to pravastatin and simvastatin Code(s): E78.5 - Hyperlipidemia, unspecified Category: Medical Plan: Continue statin (5) DM type 2 (diabetes mellitus, type 2): Code(s): E11.9 - Type 2 diabetes mellitus without complications Category: Medical Plan: A1c is 6.5. ADA diet increase exercise weight loss discussed with the patient. Continue current medications follow-up in 6 months (6) Obstructive sleep apnea: Comment: Compliant with CPAP Code(s): G47.33 - Obstructive sleep apnea (adult) (pediatric) Category: Medical Plan: Continue CPAP Orders: Orders CA echo transthoracic complete Today R01.1 - Cardiac murmur, unspecified Comprehensive [place]. Panel Fast 6 Months E11.9 - Type 2 diabetes mellitus without complications, E78.5 - Hyperlipidemia, unspecified, I10 - Essential (primary) hypertension Complete Blood Count Auto Diff 6 Months E11.9 - Type 2 diabetes mellitus without complications, E78.5 - Hyperlipidemia, unspecified, I10 - Essential (primary) hypertension TSH reflex Free T4 6 Months E11.9 - Type 2 diabetes mellitus without complications, E78.5 - Hyperlipidemia, unspecified, I10 - Essential (primary) hypertension Microalbumin, Random (w Creat) 6 Months E11.9 - Type 2 diabetes mellitus without complications, E78.5 - Hyperlipidemia, unspecified, I10 - Essential (primary) hypertension Hemoglobin A1c 6 Months E11.9 - Type 2 diabetes mellitus without complications, E78.5 - Hyperlipidemia, unspecified, I10 - Essential (primary) hypertension Lipid Panel 6 Months E11.9 - Type 2 diabetes mellitus without complications, E78.5 - Hyperlipidemia, unspecified, I10 - Essential (primary) hypertension UA w Microscopic 6 Months E11.9 - Type 2 diabetes mellitus without complications, E78.5 - Hyperlipidemia, unspecified, I10 - Essential (primary) hypertension Referrals Cologuard Test Z12.11 - Encounter for screening for malignant neoplasm of colon, Z12.12 - Encounter for screening for malignant neoplasm of rectum Medications: New sertraline 150 mg (1.5 x 100 mg) PO DAILY 30 tabs 0RF sertraline 150 mg (1.5 x 100 mg) PO DAILY 30 tabs 0RF
[2025-10-15 11:01] VITALS: BP 118/62; PULSE 82; RESP 16; TEMP 37; O2SAT 97; BMI 26.2
== END 2025-10-15 13:52 | disposition home or self-care (01) ==
LOC: HO.HMCC 10:48
PROVIDERS: PCP Internal Medicine; Visit Provider Internal Medicine
DX: E11.69 Type 2 diabetes mellitus with other specified complication (principal); R01.1 Cardiac murmur, unspecified; F41.9 Anxiety disorder, unspecified; I10 Essential (primary) hypertension; E78.5 Hyperlipidemia, unspecified; G47.33 Obstructive sleep apnea (adult) (pediatric)